=== PATIENT | male | born 1945 | race Two or more races ===

== ENCOUNTER 2019-05-23 15:55 | Inpatient (IN) | payer MEDICARE, OTHER ==
[~2019-05-23] VITALS: Ht 170.2 cm; Wt 71.8 kg
[2019-05-23 16:47] LABS: BASO % 1 % (0-3); EOS % 1 % (0-3); HEMATOCRIT 37.6 % (39.0-53.0); HEMOGLOBIN 12.5 g/dL (13.0-17.5); LYMPH # 2.2 x10^3/uL (1.0-4.8); LYMPH % 37 % (24-48); MEAN CORPUSCULAR HEMOGLOBIN 31 pg (25-35); MEAN CORPUSCULAR HGB CONC 33 g/dL (31-37); MEAN CORPUSCULAR VOLUME 92 fL (79-100); MONO # 0.4 x10^3/uL (0.0-1.1); MONO % 7 % (0-9); NEUT # 3.3 x10^3uL (1.8-7.7); NEUT % 56 % (31-73); PLATELET COUNT 238 x10^3/uL (140-400); RED BLOOD COUNT 4.09 x10^6/uL (4.30-5.70); RED CELL DISTRIBUTION WIDTH 15.2 % (11.5-14.5); WHITE BLOOD COUNT 5.9 x10^3/uL (4.0-11.0)
--- NOTE | 2019-05-23 16:51 | EKG ---
[address] [address] Test Date: 2019-05-23 Test Time: 16:36:38 Pat Name: RADHA CARBAJAL Department: Room: Gender: M Equipment Manager: : 1945 Requested By: SHAITSA ESPITIA Order Number: [id number] Reading MD: Feliz Arredondo MD Measurements Intervals Dewitt Rate: 64 P: 40 PA: 160 QRS: 6 QRSD: 118 T: 39 QT: 390 QTc: 406 Interpretive Statements SINUS RHYTHM RBBB NON-SPECIFIC ST/T CHANGES Electronically Signed On 05-30-2019 10:35:18 CDT by Feliz Arredondo MD
[2019-05-23 16:55] LABS: ALBUMIN 3.3 g/dL (3.4-5.0); ALBUMIN/GLOBULIN RATIO 0.8 (1.0-1.7); CALCIUM 9.1 mg/dL (8.5-10.1); CREATININE 1.1 mg/dL (0.7-1.3); GFR 65.3; MAGNESIUM 1.4 mg/dL (1.8-2.4); POTASSIUM 4.4 mmol/L (3.5-5.1); TOTAL BILIRUBIN 0.8 mg/dL (0.2-1.0); TOTAL PROTEIN 7.3 g/dL (6.4-8.2)
--- NOTE | 2019-05-23 17:06 | PHYS DOC ---
Past History Past Medical History: Anxiety, CAD, CVA, Dementia, Depression, Diabetes, High Cholesterol, Heart Disease, Hypertension, Prostatitis, Renal Disease, Schizophrenia, Stroke (SHAISTA ESPITIA MD) Past Surgical History: No Surgical History (SHAISTA ESPITIA MD) Alcohol Use: None Drug Use: None (SHAISTA ESPITIA MD) Adult General Chief Complaint Chief Complaint: PSYCH EVALUATION HPI HPI Patient is a 74-year-old male referred in 2 to more aggressive behavior. Has been masturbating in public and touching other members at [facility] patient has a history of chronic kidney disease he is on Bria Osorio has a history of diabetes no physical complaints noted. No trauma (SHAISTA ESPITIA MD) Review of Systems Review of Systems hanson by dementia pt denies complaints. (SHAISTA ESPITIA MD) Allergies Allergies Allergies Coded Allergies Type Severity Reaction Last Updated Verified No Known Drug Allergies 05/23/19 No (SHAISTA ESPITIA MD) Physical Exam Physical Exam Constitutional: Well developed, well nourished, no acute distress, non-toxic appearance. [] HENT: Normocephalic, atraumatic, bilateral external ears normal, oropharynx moist, no oral exudates, nose normal. [] Eyes: PERRLA, EOMI, conjunctiva normal, no discharge. [] Neck: Normal range of motion, no tenderness, supple, no stridor. [] Cardiovascular:Heart rate regular rhythm, no murmur [] Lungs & Thorax: Bilateral breath sounds clear to auscultation [] Abdomen: Bowel sounds normal, soft, no tenderness, no masses, no pulsatile masses. [] Skin: Warm, dry, no erythema, no rash. [] Back: No tenderness, no CVA tenderness. [] Neurologic: Alert and responsive, normal motor function, normal sensory functi on, no focal deficits noted. [] Psychologic: calm and cooperative (SHAISTA ESPITIA MD) Current Patient Data Vital Signs Vital Signs Date Time Temp Pulse Resp B/P (MAP) Pulse Ox O2 Delivery O2 Flow Rate FiO2 05/23/19 15:55 98.1 80 16 99 Room Air Lab Results Laboratory Tests Test 05/23/19 16:20 White Blood Count 5.9 x10^3/uL (4.0-11.0) Red Blood Count 4.09 x10^6/uL (4.30-5.70) L Hemoglobin 12.5 g/dL (13.0-17.5) L Hematocrit 37.6 % (39.0-53.0) L Mean Corpuscular Volume 92 fL (79-100) Mean Corpuscular Hemoglobin 31 pg (25-35) Mean Corpuscular Hemoglobin Concent 33 g/dL (31-37) Red Cell Distribution Width 15.2 % (11.5-14.5) H Platelet Count 238 x10^3/uL (140-400) Neutrophils (%) (Auto) 56 % (31-73) Lymphocytes (%) (Auto) 37 % (24-48) Monocytes (%) (Auto) 7 % (0-9) Eosinophils (%) (Auto) 1 % (0-3) Basophils (%) (Auto) 1 % (0-3) Neutrophils # (Auto) 3.3 x10^3uL (1.8-7.7) Lymphocytes # (Auto) 2.2 x10^3/uL (1.0-4.8) Monocytes # (Auto) 0.4 x10^3/uL (0.0-1.1) Eosinophils # (Auto) 0.0 x10^3/uL (0.0-0.7) Basophils # (Auto) 0.0 x10^3/uL (0.0-0.2) Sodium Level 138 mmol/L (136-145) Potassium Level 4.4 mmol/L (3.5-5.1) Chloride Level 101 mmol/L (98-107) Carbon Dioxide Level 27 mmol/L (21-32) Anion Gap 10 (6-14) Blood Urea Nitrogen 22 mg/dL (8-26) Creatinine 1.1 mg/dL (0.7-1.3) Estimated GFR (Cockcroft-Gault) 65.3 BUN/Creatinine Ratio 20 (6-20) Glucose Level 106 mg/dL (70-99) H Calcium Level 9.1 mg/dL (8.5-10.1) Magnesium Level 1.4 mg/dL (1.8-2.4) L Total Bilirubin 0.8 mg/dL (0.2-1.0) Aspartate Amino Transferase (AST) 11 U/L (15-37) L Alanine Aminotransferase (ALT) 15 U/L (16-63) L Alkaline Phosphatase 73 U/L (46-116) Total Protein 7.3 g/dL (6.4-8.2) Albumin 3.3 g/dL (3.4-5.0) L Albumin/Globulin Ratio 0.8 (1.0-1.7) L (SHAISTA ESPITIA MD) EKG EKG []Normal sinus rhythm rate of 64 there is a bundle branch block pattern no STEMI QTC 406 and interpreted by me time of encounter (SHAISTA ESPITIA MD) Radiology/Procedures Radiology/Procedures [] (SHAISTA ESPITIA MD) Course & Med Decision Making Course & Med Decision Making Pertinent Labs and Imaging studies reviewed. (See chart for details) []mild hypomag repleted 74 yo multiple medical problems p/w medical clearance for geripsych no physical complaints overall doing well in er waiting for urine then will clear medically. (SHAISTA ESPITIA MD) Course & Med Decision Making Impression: 1. Mental Status Change 2. Hx. of appropriate sexual behavior 3. Anemia hemoglobin 12.5 4. Hypo-magnesium 1.4 5. History of dementia Pt. admitted to Dr. Gray [facility] unit and consult to Dr. Sanchez for medical issues ( Note pt. admitted to Dr. Martinez vocational adviser for Dr. Gray / (YOLANDA CAVAZOS MD) Dragon Disclaimer Dragon Disclaimer This electronic medical record was generated, in whole or in part, using a voice recognition dictation system. (SHAISTA ESPITIA MD) Departure Departure: Impression: Primary Impression: Dementia Disposition: 01 HOME/RESIDENCE PRIOR TO ADM Condition: STABLE Referrals: UNKNOWN (PCP) Dragon Disclaimer This chart was dictated in whole or in part using Voice Recognition software in a busy, high-work load, and often noisy Emergency Department environment. It may contain unintended and wholly unrecognized errors or omissions. (YOLANDA CAVAZOS MD) SHAISTA ESPITIA MD May 23, 2019 17:06 YOLANDA CAVAZOS MD May 23, 2019 18:30
[2019-05-23] MEDS ORDERED: MAGNESIUM OXIDE 400 MG TABLET PO ONE (17:15)
[2019-05-23 17:56] LABS: BARBITURATES NEG (NEG); BENZODIAZEPINES NEG (NEG); CANNABINOIDS NEG (NEG); COCAINE NEG (NEG); METHADONE NEG (NEG); OPIATES NEG (NEG); PHENCYCLIDINE NEG (NEG)
[2019-05-23 17:57] LABS: AMPHETAMINE/METHAMPHETAMINE NEG (NEG)
[2019-05-23 18:03] LABS: BACTERIA,URINE FEW /HPF (0-FEW); BILIRUBIN,URINE NEG (NEG); CLARITY,URINE CLEAR; COLOR,URINE AMBER; GLUCOSE,URINE NEG (NEG); NITRITE,URINE NEG (NEG); RBC,URINE 0 /HPF (0-2); SQUAMOUS EPITHELIAL CELL,UR OCC /LPF; UROBILINOGEN,URINE 2 mg/dL (0.2 mg/dL)
[2019-05-23 18:04] LABS: HYALINE CASTS, URINE MOD /HPF
[2019-05-23] MEDS ORDERED: MEDR150D3 IM (19:09)
[2019-05-23] MEDS ORDERED: CYAN10002 IM (19:09)
[2019-05-23] MEDS ORDERED: LOSA100T14 PO (19:09)
[2019-05-23] MEDS ORDERED: DONE10TA7 PO (19:09)
[2019-05-23] MEDS ORDERED: TRAZ-120 PO (19:09)
[2019-05-23] MEDS ORDERED: ISOS30TA4 PO (19:09)
[2019-05-23] MEDS ORDERED: TAMS0.4C97 PO (19:09)
[2019-05-23] MEDS ORDERED: GLUC1KIT IM (19:09)
[2019-05-23] MEDS ORDERED: QUET50TA9 PO (19:09)
[2019-05-23] MEDS ORDERED: DEXT38GE2 PO (19:09)
[2019-05-23] MEDS ORDERED: MEDR150D3 SUBCUT (19:09)
[2019-05-23] MEDS ORDERED: INSU100I13 SQ (19:09)
[2019-05-23] MEDS ORDERED: ESTR1.25 PO (19:09)
[2019-05-23] MEDS ORDERED: METF10007 PO (19:09)
[2019-05-23] MEDS ORDERED: PARO20TA3 PO (19:09)
[2019-05-23] MEDS ORDERED: APIX5TAB5 PO (19:09)
[2019-05-23] MEDS ORDERED: LATA2.5D3 OU (19:09)
[2019-05-24] MEDS ORDERED: MAGNESIUM HYDROXIDE 2,400 MG/30 ML ORAL.SUSP. PO PRN (00:45)
[2019-05-24] MEDS ORDERED: MAG HYDROX/AL HYDROX/SIMETH 30 ML ORAL.SUSP PO PRN (00:45)
[2019-05-24] MEDS ORDERED: METHYL SALICYLATE/MENTHOL TOPICAL OINTMENT 57GM TUBE. TP PRN (00:45)
[2019-05-24] MEDS ORDERED: ACETAMINOPHEN 325 MG TABLET PO PRN (00:45)
[2019-05-24 01:55] VITALS: BP 161/78
[2019-05-24] MEDS ORDERED: MEDROXYPROGESTERONE ACETATE SUBCUT SCH (02:45)
[2019-05-24] MEDS ORDERED: GLUCAGON,HUMAN RECOMBINANT 1 MG KIT. IM PRN (02:45)
[2019-05-24] MEDS ORDERED: DEXTROSE ORAL GEL 15 GM TUBE. PO PRN (02:45)
[2019-05-24] MEDS ORDERED: ANTI-COAG MONITOR BY PHARMACY. MC PRN (03:00)
[2019-05-24 05:51] VITALS: BP 167/97
[2019-05-24 06:50] LABS: BASO % 1 % (0-3); EOS # 0.1 x10^3/uL (0.0-0.7); EOS % 2 % (0-3); HEMATOCRIT 35.4 % (39.0-53.0); HEMOGLOBIN 12.1 g/dL (13.0-17.5); LYMPH # 1.8 x10^3/uL (1.0-4.8); LYMPH % 38 % (24-48); MEAN CORPUSCULAR HEMOGLOBIN 31 pg (25-35); MEAN CORPUSCULAR HGB CONC 34 g/dL (31-37); MEAN CORPUSCULAR VOLUME 90 fL (79-100); MONO # 0.4 x10^3/uL (0.0-1.1); MONO % 8 % (0-9); NEUT # 2.3 x10^3uL (1.8-7.7); NEUT % 51 % (31-73); PLATELET COUNT 213 x10^3/uL (140-400); RED BLOOD COUNT 3.93 x10^6/uL (4.30-5.70); RED CELL DISTRIBUTION WIDTH 14.5 % (11.5-14.5); WHITE BLOOD COUNT 4.6 x10^3/uL (4.0-11.0)
[2019-05-24 07:10] LABS: ALBUMIN/GLOBULIN RATIO 0.8 (1.0-1.7); CALCIUM 8.6 mg/dL (8.5-10.1); CREATININE 0.8 mg/dL (0.7-1.3); GFR 94.2; MAGNESIUM 1.5 mg/dL (1.8-2.4); POTASSIUM 4.1 mmol/L (3.5-5.1); TOTAL BILIRUBIN 0.9 mg/dL (0.2-1.0); TOTAL PROTEIN 6.7 g/dL (6.4-8.2)
[2019-05-24] MEDS: DONEPEZIL HCL 10 MG TABLET PO SCH (08:19)
[2019-05-24] MEDS: metFORMIN 500 MG TABLET PO SCH ×2 (08:19→17:22)
[2019-05-24] MEDS: APIXABAN 2.5 MG TABLET PO SCH ×2 (08:20→21:40)
[2019-05-24] MEDS: PARoxetine 20 MG TABLET PO SCH (08:20)
[2019-05-24] MEDS: ISOSORBIDE MONONITRATE ER 30 MG TAB.ER.24H PO SCH (08:20)
[2019-05-24] MEDS: TAMSULOSIN 0.4 MG CAP.ER.24H. PO SCH (08:20)
[2019-05-24] MEDS ORDERED: MEDROXYPROGESTERONE ACETATE IM SCH ×2 (09:00)
[2019-05-24] MEDS ORDERED: LOSARTAN 25 MG TABLET. PO SCH (09:00)
[2019-05-24] MEDS ORDERED: ESTROGENS CONJUGATED PO SCH ×2 (09:00)
[2019-05-24 13:48] LABS: THYROID STIM HORMONE (TSH) 2.084 uIU/mL (0.358-3.740)
[2019-05-24 16:05] VITALS: BP 175/81
[2019-05-24 17:07] LABS: THYROXINE 8.3 ug/dL (4.5-12.0)
[2019-05-24] MEDS: traZODone 50 MG TABLET. PO SCH (17:22)
[2019-05-24] MEDS: QUEtiapine 50 MG TABLET. PO SCH (21:40)
[2019-05-24] MEDS: INSULIN GLARGINE SYRINGE. SQ SCH (21:42)
[2019-05-24] MEDS: LATANOPROST 0.005% OPHTH SOLUTION 2.5ML BOTTLE. OU SCH (21:42)
[2019-05-25 02:07] LABS: HEMOGLOBIN A1C 5.8 % (4.8-5.6)
--- NOTE | 2019-05-25 05:32 | CONS ---
DATE OF CONSULTATION: REASON FOR CONSULTATION: Medical management. HISTORY OF PRESENT ILLNESS: The patient is a 74-year-old male patient, a resident at [facility] who was admitted on account of refusing medications and care, resistance at times, sexually inappropriate, masturbating in public areas with his hand down on another resident's pant, targeting another male resident, all this in a background of dementia with behavioral disorder as well as schizophrenia. PAST MEDICAL HISTORY: Significant for type 2 diabetes mellitus, chronic kidney disease, hypertension, benign prostatic hypertrophy, dyslipidemia, cerebrovascular accident, coronary artery disease, and left-sided hemiparesis. He also has severe sensorineural deafness. PAST SURGICAL HISTORY: Significant for hernia repair. PAST PSYCHIATRIC HISTORY: Significant for dementia, schizophrenia, and anxiety. ALLERGIES: He has no known drug allergies. MEDICATIONS: He is currently on following medications: He is on Aricept 10 mg at bedtime, tamsulosin 0.4 mg daily, apixaban 2.5 mg twice a day, isosorbide mononitrate 30 mg once a day, losartan potassium 25 mg once a day, paroxetine 25 mg once a day, trazodone 50 mg once a day. He is on Seroquel extended release 50 mg at bedtime. He is on latanoprost 1 drop to both eyes at bedtime. He is on conjugated estrogen 1.25 mg tablet 1 mg p.o. daily, metformin 1000 mg twice a day, Lantus insulin 14 units at bedtime and glucagon 1 mg intramuscular as needed for hypoglycemia. He is on medroxyprogesterone acetate 150 mg in 1 mL intramuscular once a month, cyanocobalamin 1000 mcg/mL once a month. FAMILY HISTORY: Noncontributory. SOCIAL HISTORY: He is a resident at [facility]. He does not smoke, drink alcohol or use any recreational drugs. He uses a walker. PHYSICAL EXAMINATION: GENERAL: When I examined him this afternoon, he was sitting comfortably in his chair, in no apparent respiratory distress. He was slightly pale, but no jaundice, cyanosis or thyromegaly. No jugular venous distention. No limb edema. VITAL SIGNS: His heart rate was 106, blood pressure was 175/81, temperature was 98, respiratory rate was 18 and oxygen saturation was 99%. HEAD, EYES, EARS, NOSE AND THROAT: Showed normocephalic, atraumatic. NECK: Supple. HEART: Showed normal first and second heart sounds, but no gallop, rub or murmur. CHEST: Clear to auscultation. No crepitation or rhonchi. ABDOMEN: Distended, soft, nontender. No guarding or rigidity. No organomegaly. All hernial orifices are intact. Bowel sounds normal. NEUROLOGIC: He is hard of hearing, but otherwise all his cranial nerves are intact. EXTREMITIES: He moves extremities without difficulty. He ambulates with a walker. LABORATORY DATA: Showed a white cell count of 4600, hemoglobin 12, hematocrit 35, MCV 90 and platelet count 213,000. His chemistry showed serum sodium of 137, potassium 4.1, chloride 103, bicarbonate 27, anion gap of 7, BUN 18, creatinine 0.8, estimated GFR was 94 mL per minute. His glucose was 90, calcium was 8.6, and magnesium was 1.5. Serum iron, TIBC, and iron saturation are all low. His total bilirubin, AST, ALT, alkaline phosphatase were normal. Total protein was 6.7, albumin 3. Serum triglycerides 91, total cholesterol 174, LDL cholesterol 120, VLDL was 18, HDL was 26, and the ratio was 4. His TSH was 2.084. Urinalysis was essentially unremarkable and toxic screen was negative. IMPRESSION: In summary, this is a 74-year-old male patient, a resident at [facility], who was admitted on account of refusing medication and care, sexually inappropriate, masturbating in public areas with his hands down another resident's pant, targeting another male resident, all this in a background of dementia with behavioral disturbances and schizophrenia. Medically, he is known to have type 2 diabetes, hypertension, hyperlipidemia, benign prostatic hypertrophy, chronic kidney disease, cerebrovascular accident, coronary artery disease, and left-sided hemiparesis. All in all, the patient seems to be medically stable, although his blood pressure seems to be fluctuating and labile. He is actually on losartan 25 mg, can be increased to 50. He is also on isosorbide mononitrate. I will follow him closely and if need be, we can adjust his medication to control his blood pressure. Thank you, Dr. rGay, for allowing me to participate in the care of this patient. MALINDA DONNELLY MD DR: EUGENIA/fatoumata JOB#: [id number] / [id number]
[2019-05-25 06:10] VITALS: BP 134/76
--- NOTE | 2019-05-25 06:54 | PSYEV ---
DATE OF SERVICE: REASON FOR ADMISSION: This 74-year-old single male was admitted to inpatient program at [facility] from [facility] where he was a resident for several years. The patient apparently started exhibiting inappropriate sexual behaviors, masturbating in public areas and also targeting another male resident, putting his hands down another resident's pant. HISTORY OF PRESENT ILLNESS: The patient had significant hearing loss. He had difficulty providing much information except he admitted to exhibiting some sexual behaviors and also stated that he is not going to repeat that behavior again. The patient is having multiple physical problems. He had history of two CVAs, also having chronic kidney disease and has the diagnosis of schizophrenia, anxiety in the past. The patient is appropriately dressed. The patient's gait is impaired, had left hemiparesis. The patient unable to give much information, but he was able to talk about his past that includes that he grew up in an orphanage from [id number]. The patient states he finished high school. The patient started having problems. The patient was in a foster care since he was 11 years old. The patient had some difficulty giving a full chronological history. The patient states after finishing high school, he went to college for 2 years and also, he stayed with a family for a period of time. 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 The patient apparently was for 51 years, and has 3 children. PAST PSYCHIATRIC HISTORY: The patient denies of having any psychiatric problems before. Never had any hospitalizations. PAST MEDICAL HISTORY: The patient has chronic heart disease. Apparently, he had two major CVAs, left him with left hemiparesis. The patient also has stage 3 chronic kidney disease. The patient also has signs of dementia, early signs. The patient also has hypertension, BPH, dyslipidemia, coronary artery disease. The patient apparently had a CVA in October in the past year and treated at [facility]. At that time, he had left facial drooping and dysarthria. He was also in the rehab program and was able to walk. The patient started showing gradual decline. Currently, he is on wheelchair. The patient also has a history of diabetes mellitus type 2. The patient also had degenerative joint disease. PSYCHOSOCIAL HISTORY: As stated above, the patient was placed in an orphanage and was able to finish high school, 2 years of college. He worked as an accountant supervisor for a period of time. The patient is currently disabled. The patient's longest job was for 4 years. The patient was for 51 years, , has 3 children. The patient denies of any alcohol or substance abuse. FAMILY HISTORY: Denies. MENTAL STATUS EXAMINATION: The patient appeared to be of his stated age, appropriately dressed, on wheelchair. The patient had significant hearing loss, but able to make eye contact. The patient was able to give information with regard to his past medical issues and treatments and admits that he exhibited some sexual behaviors at this facility before coming here. His speech was clear, monotone and no evidence of any speech impediment. His affect and mood were somewhat withdrawn, some blunting of affect. The patient denies of feeling depressed and also somewhat indifferent to his surroundings. The patient also had difficulty with the date and time and he knew he was in the hospital, but he did not know it was [place]. The patient admits his memory problems are getting worse. ASSETS: The patient apparently made a significant recovery from the CVAs in the past, but currently he is wheelchair bound. The patient apparently able to talk, able to interact with others. WEAKNESSES: The patient apparently is exhibiting inappropriate sexual behaviors including masturbating in public, but the patient is not comfortable talking about what happened, but he is aware of the incident and also his responsibility. ADMITTING DIAGNOSES: 1. Dementia, vascular type with behavior problems. 2. History of schizophrenia, currently not exhibiting any psychotic symptoms. 3. Impulse control disorder, unspecified. 4. Generalized anxiety disorder. AXIS II: None. AXIS III: Diabetes mellitus, coronary artery disease, status post cerebrovascular accident twice, left hemiparesis, hypertension and dyslipidemia. The patient's home medications included Depo-Provera 104 mg IM, Premarin 1 mg daily, Aricept 10 mg daily, Paxil 20 mg daily, trazodone 50 mg daily in the evening and Seroquel 50 mg at night. INITIAL TREATMENT PLAN: The patient will continue on the current treatment regimen and the patient also was on Aricept in the past 10 mg at bedtime. The patient encouraged to attend all the activities. The patient also will be involved in individual therapy, group therapy, activity therapy. The patient's lab reviewed. The patient's hemoglobin was 12.1. The patient's BUN was 23, glucose 106. The patient's LDL was 120, HDL 36, urine analysis was within normal range. The patient will continue on all his medications including B12 1000 mcg IM monthly, losartan 50 mg daily for hypertension and also the Depo-Provera injections IM monthly, insulin 14 units at night, Seroquel 50 mg at night, trazodone 50 mg daily. The patient is also on Eliquis 2.5 mg b.i.d., Flomax 0.4 mg daily, paroxetine 20 mg daily, Aricept 10 mg daily, metformin 1000 mg b.i.d. The patient is also on glucagon. LENGTH OF STAY: 7-10 days. DISCHARGE CRITERIA: The patient currently will be under evaluation. The patient's medications will be monitored. The patient will be considered for discharge if he maintains reasonable improvement for 3 consecutive days. RADHA SHAFER MD DR: JONAS/fatoumata JOB#: [id number] / [id number]
[2019-05-25] MEDS: metFORMIN 500 MG TABLET PO SCH ×2 (08:21→16:36)
[2019-05-25] MEDS: LOSARTAN 50 MG TABLET. PO SCH (08:22)
[2019-05-25] MEDS: TAMSULOSIN 0.4 MG CAP.ER.24H. PO SCH (08:22)
[2019-05-25] MEDS: DONEPEZIL HCL 10 MG TABLET PO SCH (08:22)
[2019-05-25] MEDS: APIXABAN 2.5 MG TABLET PO SCH ×2 (08:22→21:35)
[2019-05-25] MEDS: ESTROGENS, CONJUGATED 0.3 MG TABLET PO SCH (08:23)
[2019-05-25] MEDS: PARoxetine 20 MG TABLET PO SCH (08:23)
[2019-05-25] MEDS ORDERED: medroxyPROGESTERone IM 150 MG/ML VIAL. IM SCH (09:00)
[2019-05-25] MEDS: ISOSORBIDE MONONITRATE ER 30 MG TAB.ER.24H PO SCH (09:00)
[2019-05-25 16:11] VITALS: BP 169/158
[2019-05-25] MEDS: traZODone 50 MG TABLET. PO SCH (16:36)
[2019-05-25] MEDS: LATANOPROST 0.005% OPHTH SOLUTION 2.5ML BOTTLE. OU SCH (21:32)
[2019-05-25] MEDS: INSULIN GLARGINE SYRINGE. SQ SCH (21:34)
[2019-05-25] MEDS: QUEtiapine 50 MG TABLET. PO SCH (21:35)
[2019-05-26 05:50] VITALS: BP 138/76
[2019-05-26] MEDS: TAMSULOSIN 0.4 MG CAP.ER.24H. PO SCH (09:53)
[2019-05-26] MEDS: ISOSORBIDE MONONITRATE ER 30 MG TAB.ER.24H PO SCH (09:53)
[2019-05-26] MEDS: DONEPEZIL HCL 10 MG TABLET PO SCH ×2 (09:54→21:27)
[2019-05-26] MEDS: PARoxetine 20 MG TABLET PO SCH (09:54)
[2019-05-26] MEDS: ESTROGENS, CONJUGATED 0.3 MG TABLET PO SCH (09:54)
[2019-05-26] MEDS: metFORMIN 500 MG TABLET PO SCH ×2 (09:54→17:23)
[2019-05-26] MEDS: APIXABAN 2.5 MG TABLET PO SCH ×2 (09:54→21:21)
[2019-05-26] MEDS: LOSARTAN 50 MG TABLET. PO SCH (09:55)
--- NOTE | 2019-05-26 13:11 | PN ---
DATE: 05/25/2019 SUBJECTIVE: The patient was seen today, met with the staff, chart reviewed. Staff reports no major behavior problems. The patient has difficulty with hearing. The patient also withdrawn, admits to feeling lonely, depressed. The patient also feeling almost guilt because of his behaviors prior to coming here. The patient is participating in all the activities, interacting with the staff and other residents. Did not present with any major mood swings. OBSERVATION: VITAL SIGNS: Temperature 97.6, blood pressure 134/76, pulse 58, respiration 18, O2 sat 98%. GENERAL: Slept about 6 hours last night. The patient's appetite normal. MEDICATIONS: The patient's current medications include: B12 1000 mcg IM monthly. The patient also on Premarin 0.9 mg daily, losartan 50 mg daily, is also on Depo-Provera IM 104 mg monthly. The patient is also on insulin Lantus, also Seroquel 50 mg at night, trazodone 50 mg at bedtime, Paxil 20 mg daily, Aricept 10 mg daily. The patient is also on metformin, glucagon and also Flomax, Imdur and Eliquis. The patient is not having any side effects. LABORATORY DATA: The patient's lab reviewed. The patient's blood sugar fluctuates. The patient's hemoglobin 5.8, BUN 23, LDL 120, HDL 36. ASSESSMENT: 1. Dementia, vascular type with behavior problems. 2. History of schizophrenia, currently not exhibiting any psychotic symptoms. 3. Impulse control disorder, unspecified. 4. Generalized anxiety disorder. PLAN: To continue with the current treatment. The patient is encouraged to attend all the activities. RADHA SHAFER MD DR: JONAS/fatoumata JOB#: [id number] / [id number]
[2019-05-26 16:54] VITALS: BP 110/60
[2019-05-26] MEDS: traZODone 50 MG TABLET. PO SCH (17:23)
[2019-05-26] MEDS: LATANOPROST 0.005% OPHTH SOLUTION 2.5ML BOTTLE. OU SCH (21:21)
[2019-05-26] MEDS: QUEtiapine 50 MG TABLET. PO SCH (21:21)
[2019-05-26] MEDS: INSULIN GLARGINE SYRINGE. SQ SCH (21:28)
--- NOTE | 2019-05-27 01:46 | PN ---
DATE: 05/26/2019 SUBJECTIVE: The patient was seen today, met with the staff, chart reviewed. Staff reports somewhat inappropriate towards another female resident. The patient also has been isolating himself, but admits to feeling depressed. The patient is also aware that he is here because of his sexual behaviors which are inappropriate where he was staying. The patient is on wheelchair and the patient also showing decreased psychomotor activity and also lack of motivation. OBSERVATION: VITAL SIGNS: Temperature 98.1, blood pressure 138/76, pulse 68, respirations 20, O2 sat 99%. Slept about 7 hours last night. The patient's appetite is fair. MEDICATIONS: The patient's current medications include B12 1000 mcg IM monthly. The patient is also on Premarin 0.9 mg daily and also Depo-Provera IM 104 mg monthly. The patient is also diabetic, currently on Lantus. The patient is also getting Seroquel 50 mg at night, trazodone 50 mg at bedtime, Paxil 20 mg daily, and Aricept 10 mg daily. The patient is not having any side effects. LABORATORY DATA: The patient's lab reviewed. ASSESSMENT: 1. Dementia, vascular type with behavior problems. 2. History of schizophrenia, currently not exhibiting any psychotic symptoms. 3. Impulse control disorder, unspecified. 4. Generalized anxiety disorder. Continue with the treatment. RADHA SHAFER MD DR: JONAS/fatoumata JOB#: [id number] / [id number]
[2019-05-27 05:03] VITALS: BP 158/82
[2019-05-27] MEDS: TAMSULOSIN 0.4 MG CAP.ER.24H. PO SCH (08:24)
[2019-05-27] MEDS: LOSARTAN 50 MG TABLET. PO SCH (08:24)
[2019-05-27] MEDS: metFORMIN 500 MG TABLET PO SCH ×2 (08:24→16:21)
[2019-05-27] MEDS: ISOSORBIDE MONONITRATE ER 30 MG TAB.ER.24H PO SCH (08:24)
[2019-05-27] MEDS: APIXABAN 2.5 MG TABLET PO SCH ×2 (08:24→20:20)
[2019-05-27] MEDS: ESTROGENS, CONJUGATED 0.3 MG TABLET PO SCH (08:25)
[2019-05-27] MEDS: PARoxetine 20 MG TABLET PO SCH (08:25)
[2019-05-27 15:30] VITALS: BP 125/68
[2019-05-27] MEDS: CHOLECALCIFEROL (VITAMIN D3) 50,000 UNIT CAPSULE PO SCH (16:20)
[2019-05-27] MEDS: traZODone 50 MG TABLET. PO SCH (16:20)
[2019-05-27] MEDS: QUEtiapine 50 MG TABLET. PO SCH (20:20)
[2019-05-27] MEDS: LATANOPROST 0.005% OPHTH SOLUTION 2.5ML BOTTLE. OU SCH (20:20)
[2019-05-27] MEDS: INSULIN GLARGINE SYRINGE. SQ SCH (20:25)
[2019-05-28 07:08] VITALS: BP 155/87
[2019-05-28] MEDS: LOSARTAN 50 MG TABLET. PO SCH (08:44)
[2019-05-28] MEDS: DONEPEZIL HCL 10 MG TABLET PO SCH (08:44)
[2019-05-28] MEDS: metFORMIN 500 MG TABLET PO SCH ×2 (08:44→17:29)
[2019-05-28] MEDS: TAMSULOSIN 0.4 MG CAP.ER.24H. PO SCH (08:44)
[2019-05-28] MEDS: APIXABAN 2.5 MG TABLET PO SCH ×2 (08:44→20:19)
[2019-05-28] MEDS: ISOSORBIDE MONONITRATE ER 30 MG TAB.ER.24H PO SCH (08:44)
[2019-05-28] MEDS: PARoxetine 20 MG TABLET PO SCH (08:45)
[2019-05-28] MEDS: ESTROGENS, CONJUGATED 0.3 MG TABLET PO SCH (08:45)
[2019-05-28 15:38] VITALS: BP 168/93
[2019-05-28] MEDS: traZODone 50 MG TABLET. PO SCH (17:29)
[2019-05-28] MEDS: QUEtiapine 50 MG TABLET. PO SCH (20:18)
[2019-05-28] MEDS: LATANOPROST 0.005% OPHTH SOLUTION 2.5ML BOTTLE. OU SCH (20:19)
[2019-05-28] MEDS: INSULIN GLARGINE SYRINGE. SQ SCH (20:22)
--- NOTE | 2019-05-28 23:40 | PN ---
DATE: 05/28/2019 SUBJECTIVE: The patient was seen today, met with the staff, chart reviewed. The patient still withdrawn, isolative, reports no major problems. There was some concern about the patient's behavior being too close to another female. Staff reports the patient with hearing loss that could be one of the reasons he was too close to the other resident. The patient has a history of sexually inappropriate behaviors prior to coming here. OBSERVATION: VITAL SIGNS: Temperature 97.4, blood pressure 155/87, pulse 63, respirations 16, O2 sat 99%. GENERAL: Slept about 8 hours last night. The patient's appetite normal. MEDICATIONS: The patient's current medications include Seroquel 50 mg at night, trazodone 50 mg at bedtime, Paxil 20 mg daily and Aricept 10 mg daily. LABORATORY DATA: The patient's lab reviewed. ASSESSMENT: 1. Dementia, vascular type with behavior problems. 2. History of schizophrenia, currently not exhibiting any psychotic symptoms. 3. Impulse control disorder, unspecified. 4. Generalized anxiety disorder. PLAN: Continue with the treatment. RADHA SHAFER MD DR: JONAS/fatoumata JOB#: [id number] / [id number]
[2019-05-29 06:06] VITALS: BP 130/63
[2019-05-29] MEDS: LOSARTAN 50 MG TABLET. PO SCH (08:25)
[2019-05-29] MEDS: DONEPEZIL HCL 10 MG TABLET PO SCH (08:25)
[2019-05-29] MEDS: APIXABAN 2.5 MG TABLET PO SCH ×2 (08:25→21:09)
[2019-05-29] MEDS: TAMSULOSIN 0.4 MG CAP.ER.24H. PO SCH (08:25)
[2019-05-29] MEDS: metFORMIN 500 MG TABLET PO SCH ×2 (08:25→16:18)
[2019-05-29] MEDS: ISOSORBIDE MONONITRATE ER 30 MG TAB.ER.24H PO SCH (08:26)
[2019-05-29] MEDS: ESTROGENS, CONJUGATED 0.3 MG TABLET PO SCH (08:26)
[2019-05-29] MEDS: PARoxetine 20 MG TABLET PO SCH (08:26)
[2019-05-29 16:14] VITALS: BP 130/70
[2019-05-29] MEDS: traZODone 50 MG TABLET. PO SCH (16:18)
[2019-05-29] MEDS: LATANOPROST 0.005% OPHTH SOLUTION 2.5ML BOTTLE. OU SCH (21:09)
[2019-05-29] MEDS: QUEtiapine 50 MG TABLET. PO SCH (21:09)
[2019-05-29] MEDS: INSULIN GLARGINE SYRINGE. SQ SCH (21:23)
--- NOTE | 2019-05-29 21:45 | PDOC ---
Exam Note: Cy Note: Please also refer to the separate dictated note~for this date of service dictated separately.~Patient seen individually. Discussed the patient with Nursing staff reviewed the chart.~Reviewed interim history and current functioning. Reviewed vital signs,~Labs/ Radiology~and current medications noted below. Continue current treatment with the changes noted in the dictated addendum note Assessment: Vital Signs/I&O: Vital Signs Date Time Temp Pulse Resp B/P (MAP) Pulse Ox O2 Delivery O2 Flow Rate FiO2 05/29/19 16:14 96.9 68 16 130/70 (90) 99 05/29/19 06:06 Room Air I & O 05/28/19 05/28/19 05/29/19 14:59 22:59 06:59 Intake Total 960 ml 580 ml Balance 960 ml 580 ml Labs: Laboratory Tests Test 05/29/19 07:12 05/29/19 19:02 Glucose (Fingerstick) 124 mg/dL (70-99) H 165 mg/dL (70-99) H Current Medications: I have reviewed the current psychotropics carefully including drug interactions. Risk benefit ratio favors no change other than as noted in my dictated progress note. Diagnosis: Problems: (1) Dementia (2) Hypomagnesemia LEILA JAIMES MD May 29, 2019 21:45
[2019-05-30 06:25] VITALS: BP 158/86
[2019-05-30] MEDS: ESTROGENS, CONJUGATED 0.3 MG TABLET PO SCH (08:19)
[2019-05-30] MEDS: TAMSULOSIN 0.4 MG CAP.ER.24H. PO SCH (08:19)
[2019-05-30] MEDS: ISOSORBIDE MONONITRATE ER 30 MG TAB.ER.24H PO SCH (08:19)
[2019-05-30] MEDS: metFORMIN 500 MG TABLET PO SCH ×2 (08:19→17:29)
[2019-05-30] MEDS: PARoxetine 20 MG TABLET PO SCH (08:20)
[2019-05-30] MEDS: LOSARTAN 50 MG TABLET. PO SCH ×2 (08:20→17:56)
[2019-05-30] MEDS: DONEPEZIL HCL 10 MG TABLET PO SCH (08:20)
[2019-05-30] MEDS: APIXABAN 2.5 MG TABLET PO SCH ×2 (08:20→20:44)
[2019-05-30 15:44] VITALS: BP 174/71
[2019-05-30] MEDS: traZODone 50 MG TABLET. PO SCH (17:28)
--- NOTE | 2019-05-30 18:50 | PN ---
DATE: 05/29/2019 PSYCHIATRIC PROGRESS NOTE This is a late entry, date of service 05/29/2019 covers elements not covered in my initial note. SUBJECTIVE: I met with the patient evening of 05/29/2019 in his room. Discussed with nursing staff, reviewed the chart, reviewed information with Dr. Martinez who covered for me over the past 1 week. The patient slept 7-3/4 hours previous night. He has been calm, compliant with medications, reasonably oriented. No sexually inappropriate behaviors or aggression noted per nursing staff. REVIEW OF SYSTEMS: Ambulation impaired, in wheelchair. No CV, , pulmonary, eye system symptoms on review. MENTAL STATUS EXAM: Reasonably oriented. Speech has some latency, coherent. Abstraction fair, computation impaired, language function intact, attention span short. Mood and affect somewhat withdrawn. LABORATORY DATA: Reviewed. IMPRESSION: Probable schizoaffective disorder, bipolar type; impulse control disorder, status post CVA, anxiety disorder, unspecified; mild cognitive impairment, symptoms of OCD. Rest unchanged. PLAN: From a psychiatric standpoint, the patient is on Depo-Provera IM monthly, changing on 07/23/2019 to every 3 months, Premarin 1 mg daily, Aricept 10 mg daily, Paxil 20 mg a day, trazodone 50 mg at 1700, Seroquel 50 mg at bedtime. We will observe another day or two, but given his marked sexually inappropriate behaviors, masturbating in public areas, putting his hands down other residents pants, targeting another male resident, all of which was happening at [facility] prior to admission prompting this hospitalization. We may consider adding Depakote as a mood stabilizer and for helping his impulse control disorder. I will reassess him in the next day or so and then decide. I had a lengthy review of his past history and records. LEILA JAIMES MD DR: YANY/fatoumata JOB#: [id number] / [id number]
[2019-05-30] MEDS: LATANOPROST 0.005% OPHTH SOLUTION 2.5ML BOTTLE. OU SCH (20:44)
[2019-05-30] MEDS: DIVALPROEX ER 500 MG TAB.ER.24H PO SCH (20:44)
[2019-05-30] MEDS: QUEtiapine 50 MG TABLET. PO SCH (20:44)
[2019-05-30] MEDS: INSULIN GLARGINE SYRINGE. SQ SCH (20:46)
--- NOTE | 2019-05-30 21:37 | PDOC ---
Exam Note: Cy Note: Please also refer to the separate dictated note~for this date of service dictated separately.~Patient seen individually. Discussed the patient with Nursing staff reviewed the chart.~Reviewed interim history and current functioning. Reviewed vital signs,~Labs/ Radiology~and current medications noted below. Continue current treatment with the changes noted in the dictated addendum note Assessment: Vital Signs/I&O: Vital Signs Date Time Temp Pulse Resp B/P (MAP) Pulse Ox O2 Delivery O2 Flow Rate FiO2 05/30/19 17:56 65 174/71 05/30/19 15:44 98.2 18 100 05/29/19 06:06 Room Air I & O 05/29/19 05/29/19 05/30/19 15:00 23:00 07:00 Intake Total 840 ml 240 ml 240 ml Balance 840 ml 240 ml 240 ml Labs: Laboratory Tests Test 05/30/19 19:03 Glucose (Fingerstick) 134 mg/dL (70-99) H Current Medications: Meds: Current Medications Medications (Trade) Dose Ordered Sig/Agnelique Route PRN Reason Start Time Stop Time Status Last Admin Dose Admin Losartan Potassium (Cozaar) 100 mg DAILY PO 05/30/19 17:15 05/30/19 17:56 Divalproex Sodium (Depakote Er) 500 mg QHS PO 05/30/19 21:00 05/30/19 20:44 I have reviewed the current psychotropics carefully including drug interactions. Risk benefit ratio favors no change other than as noted in my dictated progress note. Diagnosis: Problems: (1) Anxiety disorder (2) Impulse disorder (3) History of schizophrenia (4) Vascular dementia with behavior disturbance LEILA JAIMES MD May 30, 2019 21:37
[2019-05-31 05:36] VITALS: BP 148/78
[2019-05-31] MEDS: LOSARTAN 50 MG TABLET. PO SCH (08:14)
[2019-05-31] MEDS: ESTROGENS, CONJUGATED 0.3 MG TABLET PO SCH (08:14)
[2019-05-31] MEDS: ISOSORBIDE MONONITRATE ER 30 MG TAB.ER.24H PO SCH (08:15)
[2019-05-31] MEDS: APIXABAN 2.5 MG TABLET PO SCH ×2 (08:15→21:02)
[2019-05-31] MEDS: metFORMIN 500 MG TABLET PO SCH ×2 (08:15→17:53)
[2019-05-31] MEDS: DONEPEZIL HCL 10 MG TABLET PO SCH (08:15)
[2019-05-31] MEDS: TAMSULOSIN 0.4 MG CAP.ER.24H. PO SCH (08:15)
[2019-05-31] MEDS: PARoxetine 10 MG TABLET PO SCH (08:17)
[2019-05-31 16:51] VITALS: BP 151/75
[2019-05-31] MEDS: traZODone 50 MG TABLET. PO SCH (17:53)
[2019-05-31] MEDS: QUEtiapine 50 MG TABLET. PO SCH (21:02)
[2019-05-31] MEDS: DIVALPROEX ER 500 MG TAB.ER.24H PO SCH (21:03)
[2019-05-31] MEDS: INSULIN GLARGINE SYRINGE. SQ SCH (21:04)
[2019-05-31] MEDS: LATANOPROST 0.005% OPHTH SOLUTION 2.5ML BOTTLE. OU SCH (21:14)
--- NOTE | 2019-05-31 21:35 | PDOC ---
Exam Note: Cy Note: Please also refer to the separate dictated note~for this date of service dictated separately.~Patient seen individually. Discussed the patient with Nursing staff reviewed the chart.~Reviewed interim history and current functioning. Reviewed vital signs,~Labs/ Radiology~and current medications noted below. Continue current treatment with the changes noted in the dictated addendum note Assessment: Vital Signs/I&O: Vital Signs Date Time Temp Pulse Resp B/P (MAP) Pulse Ox O2 Delivery O2 Flow Rate FiO2 05/31/19 16:51 98.6 74 18 151/75 (100) 99 05/29/19 06:06 Room Air I & O 05/30/19 05/30/19 05/31/19 15:00 23:00 07:00 Intake Total 600 ml 360 ml Balance 600 ml 360 ml Labs: Laboratory Tests Test 05/31/19 07:42 05/31/19 19:34 Glucose (Fingerstick) 74 mg/dL (70-99) 221 mg/dL (70-99) H Current Medications: Meds: Current Medications Medications (Trade) Dose Ordered Sig/Angelique Route PRN Reason Start Time Stop Time Status Last Admin Dose Admin Paroxetine HCl (Paxil) 10 mg DAILY PO 05/31/19 09:00 05/31/19 08:17 Fluvoxamine Maleate (Luvox) 25 mg DAILY PO 05/31/19 09:00 06/02/19 23:50 05/31/19 08:17 I have reviewed the current psychotropics carefully including drug interactions. Risk benefit ratio favors no change other than as noted in my dictated progress note. Diagnosis: Problems: (1) History of schizophrenia (2) Vascular dementia with behavior disturbance (3) Anxiety disorder (4) Impulse disorder LEILA JAIMES MD May 31, 2019 21:35
--- NOTE | 2019-06-01 01:06 | PN ---
DATE: 05/30/2019 PSYCHIATRIC PROGRESS NOTE This late entry 05/30/2019 covers elements not covered in my initial note. SUBJECTIVE: I met with the patient in the evening of 05/30/2019. Per NELL Vazquez, the patient slept 8-1/4 hours previous night. Generally, he has had a better day though after dinner, he was being somewhat sexually inappropriate with another female demented patient, somewhat obsessive. REVIEW OF SYSTEMS: Ambulation impaired, in wheelchair. No CV, , pulmonary, eye system symptoms on review. MENTAL STATUS EXAM: Reasonably oriented. Speech coherent, somewhat rapid at times. Abstraction fair, computation impaired, language function intact, attention span short. Short term memory is impaired. Mood and affect remain somewhat anxious, labile. LABORATORY DATA: Reviewed. IMPRESSION: Schizoaffective disorder, bipolar type; mild cognitive impairment; obsessive-compulsive disorder; anxiety disorder, unspecified; impulse control disorder. PLAN: Given some of the patient's obsessive behaviors and compulsive behaviors surrounding sexual acts, we will go ahead and change the Paxil 20 mg a day to Luvox 25 mg daily for 2 days, then 50 mg a day, start Depakote ER 500 mg p.o. at bedtime. Check CBC, CMP, valproic acid level in 3 days. Continue Depo-Provera IM, Premarin both for his sexually aggressive behaviors and Seroquel 50 mg at bedtime, trazodone 50 mg at 1700. MAN Marlene JAIMES MD DR: YANY/fatoumata JOB#: [id number] / [id number]
[2019-06-01 06:13] VITALS: BP 147/79
[2019-06-01] MEDS: APIXABAN 2.5 MG TABLET PO SCH ×2 (08:24→21:10)
[2019-06-01] MEDS: LOSARTAN 50 MG TABLET. PO SCH (08:24)
[2019-06-01] MEDS: ESTROGENS, CONJUGATED 0.3 MG TABLET PO SCH (08:25)
[2019-06-01] MEDS: metFORMIN 500 MG TABLET PO SCH ×2 (08:25→17:10)
[2019-06-01] MEDS: DONEPEZIL HCL 10 MG TABLET PO SCH (08:25)
[2019-06-01] MEDS: TAMSULOSIN 0.4 MG CAP.ER.24H. PO SCH (08:25)
[2019-06-01] MEDS: ISOSORBIDE MONONITRATE ER 30 MG TAB.ER.24H PO SCH (08:25)
[2019-06-01] MEDS: PARoxetine 10 MG TABLET PO SCH (08:25)
[2019-06-01 16:15] VITALS: BP 114/72
[2019-06-01] MEDS: traZODone 50 MG TABLET. PO SCH (17:10)
[2019-06-01] MEDS: INSULIN GLARGINE SYRINGE. SQ SCH (21:00)
--- NOTE | 2019-06-01 21:04 | PDOC ---
Exam Note: Cy Note: Please also refer to the separate dictated note~for this date of service dictated separately.~Patient seen individually. Discussed the patient with Nursing staff reviewed the chart.~Reviewed interim history and current functioning. Reviewed vital signs,~Labs/ Radiology~and current medications noted below. Continue current treatment with the changes noted in the dictated addendum note Assessment: Vital Signs/I&O: Vital Signs Date Time Temp Pulse Resp B/P (MAP) Pulse Ox O2 Delivery O2 Flow Rate FiO2 06/01/19 16:15 98.5 78 16 114/72 (86) 98 Room Air I & O 05/31/19 05/31/19 06/01/19 15:00 23:00 07:00 Intake Total 600 ml 120 ml 100 ml Balance 600 ml 120 ml 100 ml Labs: Laboratory Tests Test 06/01/19 07:54 06/01/19 19:03 Glucose (Fingerstick) 76 mg/dL (70-99) 250 mg/dL (70-99) H Current Medications: I have reviewed the current psychotropics carefully including drug interactions. Risk benefit ratio favors no change other than as noted in my dictated progress note. Diagnosis: Problems: (1) History of schizophrenia (2) Vascular dementia with behavior disturbance (3) Anxiety disorder (4) Impulse disorder LEILA JAIMES MD Jun 01, 2019 21:04
[2019-06-01] MEDS: DIVALPROEX ER 500 MG TAB.ER.24H PO SCH (21:10)
[2019-06-01] MEDS: QUEtiapine 50 MG TABLET. PO SCH (21:10)
[2019-06-01] MEDS: LATANOPROST 0.005% OPHTH SOLUTION 2.5ML BOTTLE. OU SCH (21:11)
[2019-06-02 06:20] VITALS: BP 129/72
[2019-06-02 07:04] LABS: ALBUMIN 2.6 g/dL (3.4-5.0); ALBUMIN/GLOBULIN RATIO 0.8 (1.0-1.7); ALK PHOS 52 U/L (46-116); ALT (SGPT) 7 U/L (16-63); ANION GAP 8 (6-14); AST (SGOT) 10 U/L (15-37); BLOOD UREA NITROGEN 14 mg/dL (8-26); BUN/CREATININE RATIO 18 (6-20); CALCIUM 8.3 mg/dL (8.5-10.1); CARBON DIOXIDE 26 mmol/L (21-32); CHLORIDE 106 mmol/L (98-107); CREATININE 0.8 mg/dL (0.7-1.3); GFR 94.2; GLUCOSE 82 mg/dL (70-99); POTASSIUM 3.9 mmol/L (3.5-5.1); SODIUM 140 mmol/L (136-145); TOTAL BILIRUBIN 0.5 mg/dL (0.2-1.0)
[2019-06-02 07:14] LABS: BASO % 0 % (0-3); EOS # 0.1 x10^3/uL (0.0-0.7); EOS % 2 % (0-3); HEMATOCRIT 32.3 % (39.0-53.0); HEMOGLOBIN 11.1 g/dL (13.0-17.5); LYMPH # 2.1 x10^3/uL (1.0-4.8); LYMPH % 40 % (24-48); MEAN CORPUSCULAR HEMOGLOBIN 31 pg (25-35); MEAN CORPUSCULAR HGB CONC 34 g/dL (31-37); MEAN CORPUSCULAR VOLUME 91 fL (79-100); MONO # 0.4 x10^3/uL (0.0-1.1); MONO % 7 % (0-9); NEUT # 2.7 x10^3uL (1.8-7.7); NEUT % 51 % (31-73); PLATELET COUNT 193 x10^3/uL (140-400); RED BLOOD COUNT 3.57 x10^6/uL (4.30-5.70); VAL ACID 31 mcg/mL (50-100); WHITE BLOOD COUNT 5.2 x10^3/uL (4.0-11.0)
[2019-06-02] MEDS: metFORMIN 500 MG TABLET PO SCH ×2 (08:03→17:26)
[2019-06-02] MEDS: ISOSORBIDE MONONITRATE ER 30 MG TAB.ER.24H PO SCH (08:03)
[2019-06-02] MEDS: ESTROGENS, CONJUGATED 0.3 MG TABLET PO SCH (08:03)
[2019-06-02] MEDS: LOSARTAN 50 MG TABLET. PO SCH (08:04)
[2019-06-02] MEDS: TAMSULOSIN 0.4 MG CAP.ER.24H. PO SCH (08:04)
[2019-06-02] MEDS: DONEPEZIL HCL 10 MG TABLET PO SCH (08:04)
[2019-06-02] MEDS: APIXABAN 2.5 MG TABLET PO SCH ×2 (08:04→20:54)
--- NOTE | 2019-06-02 15:39 | PN ---
DATE: 05/31/2019 PSYCHIATRIC PROGRESS NOTE This late entry May 31 covers elements not covered in my initial note. SUBJECTIVE: I met with the patient evening of May 31. Per Paola, the patient slept 8-1/4 hours previous night. He has been sexually inappropriate with male and female peers around him, talking about his penis and fondling himself in front of others and trying to sexually inappropriately touch another female demented patient. When nursing staff confronts him, he calls them liars. REVIEW OF SYSTEMS: Ambulation impaired, with walker/wheelchair. No CV, , pulmonary, eye system symptoms on review. MENTAL STATUS EXAM: Reasonably oriented. Speech is coherent, has some latency. Abstraction fair. Computation impaired. Language function intact. Attention span short. Mood and affect remain somewhat labile, at times withdrawn. LABORATORY DATA: Reviewed. IMPRESSION: Unchanged from initial note. PLAN: No change from initial note. MAN Marlene JAIMES MD DR: YANY/fatoumata JOB#: [id number] / [id number]
[2019-06-02 15:47] VITALS: BP 160/78
[2019-06-02] MEDS: traZODone 50 MG TABLET. PO SCH (17:26)
--- NOTE | 2019-06-02 19:04 | PN ---
DATE: 06/01/2019 PSYCHIATRIC PROGRESS NOTE This late entry, 06/01, covers the elements not covered in my initial note. SUBJECTIVE: I met with the patient in the evening and staffed at a treatment team meeting with the entire team in the morning and the patient's daughter, Mayela, attended the conference. The patient slept 8-1/2 hours, appetite 100%, compliant with medications, sexually inappropriately touching himself and attempting to touch a female peer. I addressed this with him at length and we addressed behavioral ways to refrain from this. REVIEW OF SYSTEMS: No CV, , pulmonary, eye systems symptoms on review. MENTAL STATUS EXAM: Reasonably oriented. Speech has some latency, coherent. Abstraction fair, computation impaired, language function intact. Mood and affect somewhat anxious, labile at times. LABORATORY DATA: Reviewed. IMPRESSION: Unchanged from initial note. PLAN: No change from initial note, but we will go ahead and stop the Paxil 10 mg a day since we have started Luvox for his OCD symptoms, manifesting mainly of sexually inappropriate touching behaviors and obsessiveness. MAN Marlene JAIMES MD DR: YANY/fatoumata JOB#: [id number] / [id number]
[2019-06-02] MEDS: LATANOPROST 0.005% OPHTH SOLUTION 2.5ML BOTTLE. OU SCH (20:53)
[2019-06-02] MEDS: DIVALPROEX ER 500 MG TAB.ER.24H PO SCH (20:54)
[2019-06-02] MEDS: QUEtiapine 50 MG TABLET. PO SCH (20:54)
[2019-06-02] MEDS: INSULIN GLARGINE SYRINGE. SQ SCH (21:03)
--- NOTE | 2019-06-02 21:31 | PDOC ---
Exam Note: Cy Note: Please also refer to the separate dictated note~for this date of service dictated separately.~Patient seen individually. Discussed the patient with Nursing staff reviewed the chart.~Reviewed interim history and current functioning. Reviewed vital signs,~Labs/ Radiology~and current medications noted below. Continue current treatment with the changes noted in the dictated addendum note Assessment: Vital Signs/I&O: Vital Signs Date Time Temp Pulse Resp B/P (MAP) Pulse Ox O2 Delivery O2 Flow Rate FiO2 06/02/19 15:47 97.8 65 20 160/78 (105) 97 06/01/19 16:15 Room Air I & O 06/01/19 06/01/19 06/02/19 15:00 23:00 07:00 Intake Total 600 ml 240 ml 240 ml Balance 600 ml 240 ml 240 ml Labs: Laboratory Tests Test 06/02/19 06:15 06/02/19 07:29 06/02/19 19:07 White Blood Count 5.2 x10^3/uL (4.0-11.0) Red Blood Count 3.57 x10^6/uL (4.30-5.70) L Hemoglobin 11.1 g/dL (13.0-17.5) L Hematocrit 32.3 % (39.0-53.0) L Mean Corpuscular Volume 91 fL (79-100) Mean Corpuscular Hemoglobin 31 pg (25-35) Mean Corpuscular Hemoglobin Concent 34 g/dL (31-37) Red Cell Distribution Width 15.0 % (11.5-14.5) H Platelet Count 193 x10^3/uL (140-400) Neutrophils (%) (Auto) 51 % (31-73) Lymphocytes (%) (Auto) 40 % (24-48) Monocytes (%) (Auto) 7 % (0-9) Eosinophils (%) (Auto) 2 % (0-3) Basophils (%) (Auto) 0 % (0-3) Neutrophils # (Auto) 2.7 x10^3uL (1.8-7.7) Lymphocytes # (Auto) 2.1 x10^3/uL (1.0-4.8) Monocytes # (Auto) 0.4 x10^3/uL (0.0-1.1) Eosinophils # (Auto) 0.1 x10^3/uL (0.0-0.7) Basophils # (Auto) 0.0 x10^3/uL (0.0-0.2) Sodium Level 140 mmol/L (136-145) Potassium Level 3.9 mmol/L (3.5-5.1) Chloride Level 106 mmol/L (98-107) Carbon Dioxide Level 26 mmol/L (21-32) Anion Gap 8 (6-14) Blood Urea Nitrogen 14 mg/dL (8-26) Creatinine 0.8 mg/dL (0.7-1.3) Estimated GFR (Cockcroft-Gault) 94.2 BUN/Creatinine Ratio 18 (6-20) Glucose Level 82 mg/dL (70-99) Calcium Level 8.3 mg/dL (8.5-10.1) L Total Bilirubin 0.5 mg/dL (0.2-1.0) Aspartate Amino Transferase (AST) 10 U/L (15-37) L Alanine Aminotransferase (ALT) 7 U/L (16-63) L Alkaline Phosphatase 52 U/L (46-116) Total Protein 6.0 g/dL (6.4-8.2) L Albumin 2.6 g/dL (3.4-5.0) L Albumin/Globulin Ratio 0.8 (1.0-1.7) L Valproic Acid Level 31 mcg/mL (50-100) L Valproic Acid Last Dose Date 06/01/2019 Valproic Acid Last Dose Time 2100 Glucose (Fingerstick) 78 mg/dL (70-99) 213 mg/dL (70-99) H Current Medications: Meds: Current Medications Medications (Trade) Dose Ordered Sig/Angelique Route PRN Reason Start Time Stop Time Status Last Admin Dose Admin Divalproex Sodium (Depakote Er) 1,000 mg QHS PO 06/02/19 21:00 06/02/19 20:54 I have reviewed the current psychotropics carefully including drug interactions. Risk benefit ratio favors no change other than as noted in my dictated progress note. Diagnosis: Problems: (1) History of schizophrenia (2) Vascular dementia with behavior disturbance (3) Anxiety disorder (4) Impulse disorder LEILA JAIMES MD Jun 02, 2019 21:31
[2019-06-03 06:07] VITALS: BP 133/73
[2019-06-03] MEDS: metFORMIN 500 MG TABLET PO SCH ×2 (08:45→17:13)
[2019-06-03] MEDS: DONEPEZIL HCL 10 MG TABLET PO SCH (08:45)
[2019-06-03] MEDS: TAMSULOSIN 0.4 MG CAP.ER.24H. PO SCH (08:46)
[2019-06-03] MEDS: ISOSORBIDE MONONITRATE ER 30 MG TAB.ER.24H PO SCH (08:46)
[2019-06-03] MEDS: LOSARTAN 50 MG TABLET. PO SCH (08:46)
[2019-06-03] MEDS: APIXABAN 2.5 MG TABLET PO SCH ×2 (08:46→20:29)
[2019-06-03] MEDS: CHOLECALCIFEROL (VITAMIN D3) 50,000 UNIT CAPSULE PO SCH (08:48)
[2019-06-03] MEDS: ESTROGENS, CONJUGATED 0.3 MG TABLET PO SCH (08:48)
[2019-06-03 16:37] VITALS: BP 162/74
[2019-06-03] MEDS: traZODone 50 MG TABLET. PO SCH (17:13)
[2019-06-03] MEDS: LATANOPROST 0.005% OPHTH SOLUTION 2.5ML BOTTLE. OU SCH (20:28)
[2019-06-03] MEDS: DIVALPROEX ER 500 MG TAB.ER.24H PO SCH (20:29)
[2019-06-03] MEDS: QUEtiapine 50 MG TABLET. PO SCH (20:29)
[2019-06-03] MEDS: INSULIN GLARGINE SYRINGE. SQ SCH (20:31)
--- NOTE | 2019-06-03 23:20 | PDOC ---
Exam Note: Cy Note: Please also refer to the separate dictated note~for this date of service dictated separately.~Patient seen individually. Discussed the patient with Nursing staff reviewed the chart.~Reviewed interim history and current functioning. Reviewed vital signs,~Labs/ Radiology~and current medications noted below. Continue current treatment with the changes noted in the dictated addendum note Assessment: Vital Signs/I&O: Vital Signs Date Time Temp Pulse Resp B/P (MAP) Pulse Ox O2 Delivery O2 Flow Rate FiO2 06/03/19 16:37 98.2 90 16 162/74 (103) 98 06/03/19 06:07 Room Air I & O 06/02/19 06/02/19 06/03/19 14:59 22:59 06:59 Intake Total 840 ml 480 ml 240 ml Balance 840 ml 480 ml 240 ml Labs: Laboratory Tests Test 06/03/19 07:18 06/03/19 19:19 Glucose (Fingerstick) 104 mg/dL (70-99) H 180 mg/dL (70-99) H Current Medications: Meds: Current Medications Medications (Trade) Dose Ordered Sig/Angelique Route PRN Reason Start Time Stop Time Status Last Admin Dose Admin Fluvoxamine Maleate (Luvox) 50 mg DAILY PO 06/03/19 09:00 06/03/19 08:48 I have reviewed the current psychotropics carefully including drug interactions. Risk benefit ratio favors no change other than as noted in my dictated progress note. Diagnosis: Problems: (1) History of schizophrenia (2) Vascular dementia with behavior disturbance (3) Anxiety disorder (4) Impulse disorder LEILA JAIMES MD Jun 03, 2019 23:20
[2019-06-04 05:35] VITALS: BP 153/76
[2019-06-04] MEDS: DONEPEZIL HCL 10 MG TABLET PO SCH ×2 (08:18→20:24)
[2019-06-04] MEDS: metFORMIN 500 MG TABLET PO SCH ×2 (08:18→17:03)
[2019-06-04] MEDS: LOSARTAN 50 MG TABLET. PO SCH (08:22)
[2019-06-04] MEDS: APIXABAN 2.5 MG TABLET PO SCH ×2 (08:23→20:24)
[2019-06-04] MEDS: ISOSORBIDE MONONITRATE ER 30 MG TAB.ER.24H PO SCH (08:23)
[2019-06-04] MEDS: ESTROGENS, CONJUGATED 0.3 MG TABLET PO SCH (08:23)
[2019-06-04] MEDS: TAMSULOSIN 0.4 MG CAP.ER.24H. PO SCH (08:23)
[2019-06-04 16:11] VITALS: BP 100/65
[2019-06-04] MEDS: traZODone 50 MG TABLET. PO SCH (17:03)
[2019-06-04] MEDS: LATANOPROST 0.005% OPHTH SOLUTION 2.5ML BOTTLE. OU SCH (20:23)
[2019-06-04] MEDS: QUEtiapine 50 MG TABLET. PO SCH (20:24)
[2019-06-04] MEDS: DIVALPROEX ER 500 MG TAB.ER.24H PO SCH (20:24)
[2019-06-04] MEDS: INSULIN GLARGINE SYRINGE. SQ SCH (20:27)
--- NOTE | 2019-06-04 21:47 | PDOC ---
Exam Note: Cy Note: Please also refer to the separate dictated note~for this date of service dictated separately.~Patient seen individually. Discussed the patient with Nursing staff reviewed the chart.~Reviewed interim history and current functioning. Reviewed vital signs,~Labs/ Radiology~and current medications noted below. Continue current treatment with the changes noted in the dictated addendum note Assessment: Vital Signs/I&O: Vital Signs Date Time Temp Pulse Resp B/P (MAP) Pulse Ox O2 Delivery O2 Flow Rate FiO2 06/04/19 16:11 97.3 88 18 100/65 (77) 97 06/03/19 06:07 Room Air I & O 06/03/19 06/03/19 06/04/19 15:00 23:00 07:00 Intake Total 600 ml 240 ml Balance 600 ml 240 ml Labs: Laboratory Tests Test 06/04/19 07:36 06/04/19 20:04 Glucose (Fingerstick) 72 mg/dL (70-99) 160 mg/dL (70-99) H Current Medications: I have reviewed the current psychotropics carefully including drug interactions. Risk benefit ratio favors no change other than as noted in my dictated progress note. Diagnosis: Problems: (1) History of schizophrenia (2) Vascular dementia with behavior disturbance (3) Anxiety disorder (4) Impulse disorder (5) Hypomagnesemia LEILA JAIMES MD Jun 04, 2019 21:47
[2019-06-05 05:28] VITALS: BP 156/83
[2019-06-05] MEDS: metFORMIN 500 MG TABLET PO SCH ×2 (08:12→17:03)
[2019-06-05] MEDS: DONEPEZIL HCL 10 MG TABLET PO SCH (08:12)
[2019-06-05] MEDS: APIXABAN 2.5 MG TABLET PO SCH ×2 (08:13→20:06)
[2019-06-05] MEDS: ISOSORBIDE MONONITRATE ER 30 MG TAB.ER.24H PO SCH (08:13)
[2019-06-05] MEDS: TAMSULOSIN 0.4 MG CAP.ER.24H. PO SCH (08:13)
[2019-06-05] MEDS: LOSARTAN 50 MG TABLET. PO SCH (08:13)
[2019-06-05] MEDS: ESTROGENS, CONJUGATED 0.3 MG TABLET PO SCH (08:14)
[2019-06-05 16:01] VITALS: BP 151/75
--- NOTE | 2019-06-05 16:04 | PN ---
DATE: 06/02/2019 PSYCHIATRIC PROGRESS NOTE This late entry 06/02/2019 covers elements not covered in my initial note. SUBJECTIVE: I met with the patient in the evening of 06/02/2019. Per NELL Freedman, the patient slept 7-1/2 hours previous night. Valproic acid level is 31. He has not been sexually inappropriate, compliant with his medications. Spending time in the day room, which is where I met with him. REVIEW OF SYSTEMS: Ambulation impaired, in wheelchair. No CV, , pulmonary, eye system symptoms on review. MENTAL STATUS EXAM: Reasonably oriented. Speech has some latency, coherent. Abstraction fair, computation impaired, language function intact, attention span short. Mood and affect somewhat anxious, labile. LABORATORY DATA: Reviewed. IMPRESSION: Unchanged from initial note. PLAN: Increase Depakote ER to 1000 mg at bedtime. Check CBC, CMP, valproic acid level, ammonia level in 3 days. Adjust to reach therapeutic level. Rest unchanged for now. MAN Marlene JAIMES MD DR: YANY/fatoumata JOB#: [id number] / [id number]
[2019-06-05] MEDS: traZODone 50 MG TABLET. PO SCH (17:03)
[2019-06-05] MEDS: DIVALPROEX ER 500 MG TAB.ER.24H PO SCH (20:06)
[2019-06-05] MEDS: QUEtiapine 50 MG TABLET. PO SCH (20:06)
[2019-06-05] MEDS: LATANOPROST 0.005% OPHTH SOLUTION 2.5ML BOTTLE. OU SCH (20:06)
--- NOTE | 2019-06-05 20:38 | PN ---
DATE: 06/03/2019 PSYCHIATRIC PROGRESS NOTE This late entry 06/03/2019 covers elements not covered in my initial note. SUBJECTIVE: I met with the patient evening of 06/03/2019. The patient slept 10 hours previous night. Overall, per nursing staff, he has done better at night and no sexually inappropriate behaviors during the day. REVIEW OF SYSTEMS: Ambulation impaired, in wheelchair. No CV, , pulmonary, eye, ENT system symptoms on review. Reliability fair. MENTAL STATUS EXAM: Reasonably oriented. Speech is coherent, abstraction fair, computation impaired, language function intact, attention span short. Mood and affect, less labile, less sexually inappropriate and impulsive. LABORATORY DATA: Reviewed. IMPRESSION: Unchanged from initial note. Schizoaffective disorder, bipolar type, mixed; anxiety disorder, unspecified; obsessive-compulsive disorder. Rest unchanged. PLAN: No change from initial note. MAN Marlene JAIMES MD DR: YANY/fatoumata JOB#: [id number] / [id number]
--- NOTE | 2019-06-05 20:40 | PN ---
DATE: 06/04/2019 PSYCHIATRIC PROGRESS NOTE This late entry 06/04/2019 covers elements not covered in my initial note. SUBJECTIVE: I met with the patient evening of 06/04/2019. The patient slept 8-1/2 hours previous night. Overall, per nursing report, he did well until dinner time and then was sexually inappropriate with another male patient and telling him to "take it out." He was standing inappropriately with this patient. I addressed this with him at some length individually. Labs are to be drawn on the and we will adjust the Depakote thereafter. Luvox is being adjusted. REVIEW OF SYSTEMS: Ambulation impaired, in wheelchair. No CV, , pulmonary, eye system symptoms on review. MENTAL STATUS EXAM: Reasonably oriented. Speech is coherent, abstraction fair, computation impaired, language function intact, attention span short. Mood and affect remain somewhat labile, anxious. LABORATORY DATA: Reviewed. IMPRESSION: Bipolar disorder, mixed; anxiety disorder, unspecified; impulse control disorder. Rest unchanged. PLAN: Continue current psychotropics. Check labs on the . Rest unchanged for now and increase Luvox gradually, adjust Depakote. MAN Marlene JAIMES MD DR: YANY/fatoumata JOB#: [id number] / [id number]
[2019-06-05] MEDS: INSULIN GLARGINE SYRINGE. SQ SCH (20:55)
--- NOTE | 2019-06-05 21:10 | PDOC ---
Exam Note: Cy Note: Please also refer to the separate dictated note~for this date of service dictated separately.~Patient seen individually. Discussed the patient with Nursing staff reviewed the chart.~Reviewed interim history and current functioning. Reviewed vital signs,~Labs/ Radiology~and current medications noted below. Continue current treatment with the changes noted in the dictated addendum note Assessment: Vital Signs/I&O: Vital Signs Date Time Temp Pulse Resp B/P (MAP) Pulse Ox O2 Delivery O2 Flow Rate FiO2 06/05/19 16:01 98.3 84 18 151/75 (100) 100 06/03/19 06:07 Room Air I & O 06/04/19 06/04/19 06/05/19 15:00 23:00 07:00 Intake Total 600 ml 360 ml Balance 600 ml 360 ml Labs: Laboratory Tests Test 06/05/19 08:09 06/05/19 19:03 Glucose (Fingerstick) 81 mg/dL (70-99) 163 mg/dL (70-99) H Current Medications: I have reviewed the current psychotropics carefully including drug interactions. Risk benefit ratio favors no change other than as noted in my dictated progress note. Diagnosis: Problems: (1) History of schizophrenia (2) Vascular dementia with behavior disturbance (3) Anxiety disorder (4) Impulse disorder LEILA JAIMES MD Jun 05, 2019 21:10
[2019-06-06 05:44] VITALS: BP 161/74
[2019-06-06 07:54] LABS: BASO % 1 % (0-3); EOS # 0.1 x10^3/uL (0.0-0.7); EOS % 1 % (0-3); HEMATOCRIT 36.9 % (39.0-53.0); HEMOGLOBIN 12.4 g/dL (13.0-17.5); LYMPH # 2.1 x10^3/uL (1.0-4.8); LYMPH % 33 % (24-48); MEAN CORPUSCULAR HEMOGLOBIN 31 pg (25-35); MEAN CORPUSCULAR HGB CONC 34 g/dL (31-37); MEAN CORPUSCULAR VOLUME 93 fL (79-100); MONO # 0.5 x10^3/uL (0.0-1.1); MONO % 7 % (0-9); NEUT # 3.8 x10^3uL (1.8-7.7); NEUT % 58 % (31-73); PLATELET COUNT 224 x10^3/uL (140-400); RED BLOOD COUNT 3.97 x10^6/uL (4.30-5.70); RED CELL DISTRIBUTION WIDTH 14.6 % (11.5-14.5); WHITE BLOOD COUNT 6.5 x10^3/uL (4.0-11.0)
[2019-06-06 08:05] LABS: ALBUMIN 3.1 g/dL (3.4-5.0); ALBUMIN/GLOBULIN RATIO 0.9 (1.0-1.7); ALK PHOS 58 U/L (46-116); ALT (SGPT) 11 U/L (16-63); ANION GAP 12 (6-14); AST (SGOT) 7 U/L (15-37); BLOOD UREA NITROGEN 16 mg/dL (8-26); BUN/CREATININE RATIO 20 (6-20); CALCIUM 8.7 mg/dL (8.5-10.1); CARBON DIOXIDE 23 mmol/L (21-32); CHLORIDE 106 mmol/L (98-107); CREATININE 0.8 mg/dL (0.7-1.3); GFR 94.2; GLUCOSE 78 mg/dL (70-99); POTASSIUM 4.1 mmol/L (3.5-5.1); SODIUM 141 mmol/L (136-145); TOTAL BILIRUBIN 0.4 mg/dL (0.2-1.0); TOTAL PROTEIN 6.7 g/dL (6.4-8.2)
[2019-06-06 08:14] LABS: VAL ACID 77 mcg/mL (50-100)
[2019-06-06] MEDS: ESTROGENS, CONJUGATED 0.3 MG TABLET PO SCH (10:31)
[2019-06-06] MEDS: ISOSORBIDE MONONITRATE ER 30 MG TAB.ER.24H PO SCH (10:31)
[2019-06-06] MEDS: TAMSULOSIN 0.4 MG CAP.ER.24H. PO SCH (10:31)
[2019-06-06] MEDS: LOSARTAN 50 MG TABLET. PO SCH (10:32)
[2019-06-06] MEDS: APIXABAN 2.5 MG TABLET PO SCH ×2 (10:32→21:22)
[2019-06-06] MEDS: metFORMIN 500 MG TABLET PO SCH ×2 (10:32→17:27)
[2019-06-06] MEDS: DONEPEZIL HCL 10 MG TABLET PO SCH (10:32)
[2019-06-06 16:23] VITALS: BP 105/69
[2019-06-06] MEDS: traZODone 50 MG TABLET. PO SCH (17:27)
--- NOTE | 2019-06-06 21:05 | PDOC ---
Exam Note: Cy Note: Please also refer to the separate dictated note~for this date of service dictated separately.~Patient seen individually. Discussed the patient with Nursing staff reviewed the chart.~Reviewed interim history and current functioning. Reviewed vital signs,~Labs/ Radiology~and current medications noted below. Continue current treatment with the changes noted in the dictated addendum note Assessment: Vital Signs/I&O: Vital Signs Date Time Temp Pulse Resp B/P (MAP) Pulse Ox O2 Delivery O2 Flow Rate FiO2 06/06/19 16:23 97.3 97 16 105/69 (81) 98 06/03/19 06:07 Room Air I & O 06/05/19 06/05/19 06/06/19 15:00 23:00 07:00 Intake Total 600 ml 180 ml Balance 600 ml 180 ml Labs: Laboratory Tests Test 06/06/19 07:35 White Blood Count 6.5 x10^3/uL (4.0-11.0) Red Blood Count 3.97 x10^6/uL (4.30-5.70) L Hemoglobin 12.4 g/dL (13.0-17.5) L Hematocrit 36.9 % (39.0-53.0) L Mean Corpuscular Volume 93 fL (79-100) Mean Corpuscular Hemoglobin 31 pg (25-35) Mean Corpuscular Hemoglobin Concent 34 g/dL (31-37) Red Cell Distribution Width 14.6 % (11.5-14.5) H Platelet Count 224 x10^3/uL (140-400) Neutrophils (%) (Auto) 58 % (31-73) Lymphocytes (%) (Auto) 33 % (24-48) Monocytes (%) (Auto) 7 % (0-9) Eosinophils (%) (Auto) 1 % (0-3) Basophils (%) (Auto) 1 % (0-3) Neutrophils # (Auto) 3.8 x10^3uL (1.8-7.7) Lymphocytes # (Auto) 2.1 x10^3/uL (1.0-4.8) Monocytes # (Auto) 0.5 x10^3/uL (0.0-1.1) Eosinophils # (Auto) 0.1 x10^3/uL (0.0-0.7) Basophils # (Auto) 0.0 x10^3/uL (0.0-0.2) Sodium Level 141 mmol/L (136-145) Potassium Level 4.1 mmol/L (3.5-5.1) Chloride Level 106 mmol/L (98-107) Carbon Dioxide Level 23 mmol/L (21-32) Anion Gap 12 (6-14) Blood Urea Nitrogen 16 mg/dL (8-26) Creatinine 0.8 mg/dL (0.7-1.3) Estimated GFR (Cockcroft-Gault) 94.2 BUN/Creatinine Ratio 20 (6-20) Glucose Level 78 mg/dL (70-99) Calcium Level 8.7 mg/dL (8.5-10.1) Total Bilirubin 0.4 mg/dL (0.2-1.0) Aspartate Amino Transferase (AST) 7 U/L (15-37) L Alanine Aminotransferase (ALT) 11 U/L (16-63) L Alkaline Phosphatase 58 U/L (46-116) Ammonia < 10 mcmol/L (11-34) L Total Protein 6.7 g/dL (6.4-8.2) Albumin 3.1 g/dL (3.4-5.0) L Albumin/Globulin Ratio 0.9 (1.0-1.7) L Valproic Acid Level 77 mcg/mL (50-100) Valproic Acid Last Dose Date 06/05/19 Valproic Acid Last Dose Time 2100 Current Medications: I have reviewed the current psychotropics carefully including drug interactions. Risk benefit ratio favors no change other than as noted in my dictated progress note. Diagnosis: Problems: (1) History of schizophrenia (2) Vascular dementia with behavior disturbance (3) CKD (chronic kidney disease) stage 3, GFR 30-59 ml/min (4) Anxiety disorder (5) Impulse disorder (6) Hypomagnesemia LEILA JAIMES MD Jun 06, 2019 21:05
[2019-06-06] MEDS: LATANOPROST 0.005% OPHTH SOLUTION 2.5ML BOTTLE. OU SCH (21:21)
[2019-06-06] MEDS: DIVALPROEX ER 500 MG TAB.ER.24H PO SCH (21:22)
[2019-06-06] MEDS: QUEtiapine 50 MG TABLET. PO SCH (21:22)
[2019-06-06] MEDS: INSULIN GLARGINE SYRINGE. SQ SCH (21:25)
--- NOTE | 2019-06-07 03:49 | PN ---
DATE: 06/05/2019 PSYCHIATRIC PROGRESS NOTE This late entry 06/05/2019 covers elements not covered in my initial note. SUBJECTIVE: I met with the patient evening of 06/05/2019. Per NELL Watkins, the patient slept 7 hours previous night. He has done well previous night and during the day. No sexually inappropriate behaviors noted. I met with him in his room at length in the evening of 06/05/2019. REVIEW OF SYSTEMS: No CV, , pulmonary, eye system symptoms on review. Gait unsteady, in wheelchair. MENTAL STATUS EXAMINATION: Reasonably oriented. Speech is coherent, has some latency. Abstraction fair, computation impaired, language function intact, attention span short. Mood and affect somewhat withdrawn. LABORATORY DATA: Reviewed. IMPRESSION: Unchanged from initial note. PLAN: No change from initial note. MAN Marlene JAIMES MD DR: YANY/fatoumata JOB#: [id number] / [id number]
[2019-06-07 04:39] VITALS: BP_SYST 127; BP_DIAS 64; BP_DIAS 66
[2019-06-07] MEDS: DONEPEZIL HCL 10 MG TABLET PO SCH (09:22)
[2019-06-07] MEDS: ESTROGENS, CONJUGATED 0.3 MG TABLET PO SCH (09:22)
[2019-06-07] MEDS: metFORMIN 500 MG TABLET PO SCH ×2 (09:22→17:13)
[2019-06-07] MEDS: APIXABAN 2.5 MG TABLET PO SCH ×2 (09:23→20:23)
[2019-06-07] MEDS: ISOSORBIDE MONONITRATE ER 30 MG TAB.ER.24H PO SCH (09:23)
[2019-06-07] MEDS: LOSARTAN 50 MG TABLET. PO SCH (09:23)
[2019-06-07] MEDS: TAMSULOSIN 0.4 MG CAP.ER.24H. PO SCH (09:23)
[2019-06-07 15:54] VITALS: BP 155/91
[2019-06-07] MEDS: traZODone 50 MG TABLET. PO SCH (17:13)
[2019-06-07] MEDS: QUEtiapine 50 MG TABLET. PO SCH (20:23)
[2019-06-07] MEDS: DIVALPROEX ER 500 MG TAB.ER.24H PO SCH (20:23)
[2019-06-07] MEDS: INSULIN GLARGINE SYRINGE. SQ SCH (20:26)
[2019-06-07] MEDS: LATANOPROST 0.005% OPHTH SOLUTION 2.5ML BOTTLE. OU SCH (21:00)
--- NOTE | 2019-06-07 21:39 | PDOC ---
Exam Note: Cy Note: Please also refer to the separate dictated note~for this date of service dictated separately.~Patient seen individually. Discussed the patient with Nursing staff reviewed the chart.~Reviewed interim history and current functioning. Reviewed vital signs,~Labs/ Radiology~and current medications noted below. Continue current treatment with the changes noted in the dictated addendum note Assessment: Vital Signs/I&O: Vital Signs Date Time Temp Pulse Resp B/P (MAP) Pulse Ox O2 Delivery O2 Flow Rate FiO2 06/07/19 15:54 98.1 75 18 155/91 (112) 100 06/03/19 06:07 Room Air I & O 06/06/19 06/06/19 06/07/19 15:00 23:00 07:00 Intake Total 600 ml 240 ml 120 ml Balance 600 ml 240 ml 120 ml Current Medications: Meds: Current Medications Medications (Trade) Dose Ordered Sig/Angelique Route PRN Reason Start Time Stop Time Status Last Admin Dose Admin Fluvoxamine Maleate (Luvox) 75 mg DAILY PO 06/07/19 09:00 06/07/19 09:22 I have reviewed the current psychotropics carefully including drug interactions. Risk benefit ratio favors no change other than as noted in my dictated progress note. Diagnosis: Problems: (1) History of schizophrenia (2) Vascular dementia with behavior disturbance (3) Anxiety disorder (4) Impulse disorder (5) Hypomagnesemia LEILA JAIMES MD Jun 07, 2019 21:39
[2019-06-08 05:13] VITALS: BP 148/78
[2019-06-08] MEDS: metFORMIN 500 MG TABLET PO SCH ×2 (07:44→17:20)
[2019-06-08] MEDS: TAMSULOSIN 0.4 MG CAP.ER.24H. PO SCH (07:44)
[2019-06-08] MEDS: LOSARTAN 50 MG TABLET. PO SCH (07:44)
[2019-06-08] MEDS: DONEPEZIL HCL 10 MG TABLET PO SCH (07:44)
[2019-06-08] MEDS: APIXABAN 2.5 MG TABLET PO SCH ×2 (07:45→20:42)
[2019-06-08] MEDS: ISOSORBIDE MONONITRATE ER 30 MG TAB.ER.24H PO SCH (07:45)
[2019-06-08] MEDS: ESTROGENS, CONJUGATED 0.3 MG TABLET PO SCH (07:46)
--- NOTE | 2019-06-08 09:31 | PN ---
DATE: 06/06/2019 PSYCHIATRIC PROGRESS NOTE This late entry 06/06/2019 covers elements not covered in my initial note. SUBJECTIVE: I met with the patient evening of 06/06/2019. Per NELL Osei, the patient slept 6-3/4 hours previous night. He has been compliant with his medications, took them appropriately during the day. He made a comment to social service staff and nursing staff "if you shoot me I will get a bullet." I processed this with him. He minimizes rationalizes and said he was anxious and appeared to react negatively when staff confronted him on being sexually inappropriate to a demented female patient on the unit when he was trying to get her into his room. He denied active suicidal ideation. REVIEW OF SYSTEMS: Ambulation impaired with walker. No CV, , pulmonary, eye system symptoms on review. MENTAL STATUS EXAM: Oriented reasonably. Speech is coherent, abstraction fair, computation impaired, language function intact, attention span short. Mood and affect remain somewhat anxious, labile. LABORATORY DATA: Reviewed. IMPRESSION: Unchanged from initial note. PLAN: No change from initial note. MAN Marlene JAIMES MD DR: YANY/fatoumata JOB#: [id number] / [id number]
--- NOTE | 2019-06-08 15:12 | RAD ---
CT HEAD WO CONTRAST Clinical indications: Change in mental status COMPARISON: None available. Technique: Noncontrast axial cross sectional scanning of the head was performed. PQRS compliance Statement One or more of the following individualized dose reduction techniques were utilized for this study: 1. Automated exposure control 2. Adjustment of the mA and/or kV according to patient size 3. Use of iterative reconstruction technique Findings: No acute intracranial hemorrhage or midline shift or mass-effect or hydrocephalus or extra-axial fluid collection is seen. Mild bilateral periventricular white matter hypodensity is seen consistent with chronic small vessel ischemic disease in this age group. There is a more focally prominent area of hypodensity involving the right centrum semiovale bilaterally which measures 15 mm in size. This is consistent with an infarct which may be subacute or chronic in nature. It appears fairly black in color similar to the CSF of the adjacent right lateral ventricle. Therefore this most likely represents an old infarct. Clinical correlation is recommended. No skull fracture or pneumocephalus is seen. No opacification of the mastoid sinuses or the middle ear cavities or the paranasal sinuses is seen. The maxillary sinuses are not completely seen in this study. Impression: No acute intracranial hemorrhage is seen. Chronic small vessel ischemic disease of the periventricular white matter. 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 Clinical correlation is recommended. Electronically signed by: Morgan Chung MD (06/08/2019 3:09 PM) [facility]
[2019-06-08 15:37] VITALS: BP 103/63
[2019-06-08] MEDS: traZODone 50 MG TABLET. PO SCH (17:19)
[2019-06-08] MEDS: LATANOPROST 0.005% OPHTH SOLUTION 2.5ML BOTTLE. OU SCH (20:42)
[2019-06-08] MEDS: DIVALPROEX ER 500 MG TAB.ER.24H PO SCH (20:42)
[2019-06-08] MEDS: QUEtiapine 50 MG TABLET. PO SCH (20:42)
[2019-06-08] MEDS: INSULIN GLARGINE SYRINGE. SQ SCH (20:46)
--- NOTE | 2019-06-08 21:36 | PDOC ---
Exam Note: Cy Note: Please also refer to the separate dictated note~for this date of service dictated separately.~Patient seen individually. Discussed the patient with Nursing staff reviewed the chart.~Reviewed interim history and current functioning. Reviewed vital signs,~Labs/ Radiology~and current medications noted below. Continue current treatment with the changes noted in the dictated addendum note Assessment: Vital Signs/I&O: Vital Signs Date Time Temp Pulse Resp B/P (MAP) Pulse Ox O2 Delivery O2 Flow Rate FiO2 06/08/19 15:37 97.6 86 20 103/63 (76) 100 06/03/19 06:07 Room Air I & O 06/07/19 06/07/19 06/08/19 15:00 23:00 07:00 Intake Total 600 ml 120 ml 240 ml Balance 600 ml 120 ml 240 ml Current Medications: I have reviewed the current psychotropics carefully including drug interactions. Risk benefit ratio favors no change other than as noted in my dictated progress note. Diagnosis: Problems: (1) History of schizophrenia (2) Vascular dementia with behavior disturbance (3) Anxiety disorder (4) Impulse disorder LEILA JAIMES MD Jun 08, 2019 21:36
[2019-06-09 05:33] VITALS: BP 145/78
[2019-06-09] MEDS: ESTROGENS, CONJUGATED 0.3 MG TABLET PO SCH (08:01)
[2019-06-09] MEDS: metFORMIN 500 MG TABLET PO SCH ×2 (08:02→17:16)
[2019-06-09] MEDS: LOSARTAN 50 MG TABLET. PO SCH (08:02)
[2019-06-09] MEDS: APIXABAN 2.5 MG TABLET PO SCH ×2 (08:02→20:05)
[2019-06-09] MEDS: TAMSULOSIN 0.4 MG CAP.ER.24H. PO SCH (08:02)
[2019-06-09] MEDS: DONEPEZIL HCL 10 MG TABLET PO SCH (08:02)
[2019-06-09] MEDS: ISOSORBIDE MONONITRATE ER 30 MG TAB.ER.24H PO SCH (08:03)
[2019-06-09 15:59] VITALS: BP 141/61
[2019-06-09] MEDS: traZODone 50 MG TABLET. PO SCH (17:16)
[2019-06-09] MEDS: QUEtiapine 50 MG TABLET. PO SCH (20:05)
[2019-06-09] MEDS: LATANOPROST 0.005% OPHTH SOLUTION 2.5ML BOTTLE. OU SCH (20:05)
[2019-06-09] MEDS: DIVALPROEX ER 500 MG TAB.ER.24H PO SCH (20:05)
[2019-06-09] MEDS: INSULIN GLARGINE SYRINGE. SQ SCH (20:08)
--- NOTE | 2019-06-09 21:30 | PDOC ---
Exam Note: Cy Note: Please also refer to the separate dictated note~for this date of service dictated separately.~Patient seen individually. Discussed the patient with Nursing staff reviewed the chart.~Reviewed interim history and current functioning. Reviewed vital signs,~Labs/ Radiology~and current medications noted below. Continue current treatment with the changes noted in the dictated addendum note Assessment: Vital Signs/I&O: Vital Signs Date Time Temp Pulse Resp B/P (MAP) Pulse Ox O2 Delivery O2 Flow Rate FiO2 06/09/19 15:59 97.8 59 18 141/61 (87) 97 I & O 06/08/19 06/08/19 06/09/19 15:00 23:00 07:00 Intake Total 600 ml 240 ml 240 ml Balance 600 ml 240 ml 240 ml Labs: Laboratory Tests Test 06/09/19 19:04 Glucose (Fingerstick) 159 mg/dL (70-99) H Current Medications: I have reviewed the current psychotropics carefully including drug interactions. Risk benefit ratio favors no change other than as noted in my dictated progress note. Diagnosis: Problems: (1) History of schizophrenia (2) Vascular dementia with behavior disturbance (3) Anxiety disorder (4) Impulse disorder LEILA JAIMES MD Jun 09, 2019 21:30
--- NOTE | 2019-06-10 03:21 | PN ---
DATE: 06/07/2019 PSYCHIATRIC PROGRESS NOTE This late entry, 06/07/2019, covers elements not covered in my initial note. SUBJECTIVE: I met with the patient in the evening. Per Yessy, the patient slept 6 hours the previous night, did well in the morning, somewhat sexually inappropriate in the afternoon, trying to kiss a demented female patient, staff intervened. I addressed this with him at length. REVIEW OF SYSTEMS: Ambulation impaired, in wheelchair. No CV, , pulmonary, eye system symptoms on review. MENTAL STATUS EXAM: Oriented reasonably. Speech is coherent, abstraction fair, computation impaired, language function intact, attention span short. Insight somewhat limited, but improving. LABORATORY DATA: Reviewed. IMPRESSION: Unchanged from initial note. PLAN: Valproic acid level on 06/06/2019 was 77, therapeutic. We have increased the Luvox to 75 mg a day. Continue Depo-Provera along with Premarin, Aricept, trazodone and Seroquel at current dosage, adjust further as clinically indicated. MAN Marlene JAIMES MD DR: YANY/fatoumata JOB#: [id number] / [id number]
[2019-06-10 05:40] VITALS: BP 149/79
--- NOTE | 2019-06-10 07:30 | PN ---
DATE: 06/08/2019 PSYCHIATRIC PROGRESS NOTE This late entry, 06/08/2019, covers elements not covered in my initial note. SUBJECTIVE: I met with the patient the evening of 06/08/2019 and staffed a treatment team meeting with the entire team in the morning. The patient's appetite is 75%, sleeping average 8 hours, slept 6-1/4 hours previous night. We looked for past imaging studies of the brain, none was noted, and we will go ahead and do a CT head to look for any frontal lobe damage given his ongoing sexually inappropriate behaviors, which persists despite multiple psychotropics both for his OCD and bipolar disorder; this is along with hormonal therapy. REVIEW OF SYSTEMS: Ambulation is impaired, with walker. No CV, , pulmonary, eye system symptoms on review. MENTAL STATUS EXAM: Reasonably oriented. Speech is coherent. Abstraction is fair. Computation impaired. Language function intact. Attention span short. Mood and affect remain somewhat labile. LABORATORY DATA: Reviewed. IMPRESSION: Bipolar disorder, mixed with psychotic features; impulse control disorder; mild cognitive impairment; anxiety disorder, unspecified; obsessive compulsive disorder. PLAN: Continue current psychotropics. Valproic acid level is therapeutic at 77, may need to further increase the Luvox. Check CT head as noted. I had a lengthy discussion with the patient in the evening about the sexually inappropriate behaviors because there was yet another incident with a female demented patient. The patient minimizes, rationalizes, denies and we addressed this at length. MAN Marlene JAIMES MD DR: YANY/fatoumata JOB#: [id number] / [id number]
[2019-06-10] MEDS: ESTROGENS, CONJUGATED 0.3 MG TABLET PO SCH (08:31)
[2019-06-10] MEDS: TAMSULOSIN 0.4 MG CAP.ER.24H. PO SCH (08:32)
[2019-06-10] MEDS: APIXABAN 2.5 MG TABLET PO SCH ×2 (08:32→20:24)
[2019-06-10] MEDS: LOSARTAN 50 MG TABLET. PO SCH (08:32)
[2019-06-10] MEDS: DONEPEZIL HCL 10 MG TABLET PO SCH (08:32)
[2019-06-10] MEDS: metFORMIN 500 MG TABLET PO SCH ×2 (08:33→17:25)
[2019-06-10] MEDS: ISOSORBIDE MONONITRATE ER 30 MG TAB.ER.24H PO SCH (09:00)
[2019-06-10] MEDS: CHOLECALCIFEROL (VITAMIN D3) 50,000 UNIT CAPSULE PO SCH (09:00)
[2019-06-10 15:41] VITALS: BP 149/70
[2019-06-10] MEDS: traZODone 50 MG TABLET. PO SCH (17:25)
[2019-06-10] MEDS: DIVALPROEX ER 500 MG TAB.ER.24H PO SCH (20:24)
[2019-06-10] MEDS: QUEtiapine 50 MG TABLET. PO SCH (20:24)
[2019-06-10] MEDS: LATANOPROST 0.005% OPHTH SOLUTION 2.5ML BOTTLE. OU SCH (20:24)
[2019-06-10] MEDS: INSULIN GLARGINE SYRINGE. SQ SCH (20:29)
--- NOTE | 2019-06-10 23:16 | PDOC ---
Exam Note: Cy Note: Please also refer to the separate dictated note~for this date of service dictated separately.~Patient seen individually. Discussed the patient with Nursing staff reviewed the chart.~Reviewed interim history and current functioning. Reviewed vital signs,~Labs/ Radiology~and current medications noted below. Continue current treatment with the changes noted in the dictated addendum note Assessment: Vital Signs/I&O: Vital Signs Date Time Temp Pulse Resp B/P (MAP) Pulse Ox O2 Delivery O2 Flow Rate FiO2 06/10/19 15:41 97.4 64 18 149/70 (96) 97 I & O 06/09/19 06/09/19 06/10/19 15:00 23:00 07:00 Intake Total 720 ml 600 ml Balance 720 ml 600 ml Labs: Laboratory Tests Test 06/10/19 07:15 06/10/19 19:17 06/10/19 20:33 Glucose (Fingerstick) 82 mg/dL (70-99) 170 mg/dL (70-99) H 112 mg/dL (70-99) H Current Medications: I have reviewed the current psychotropics carefully including drug interactions. Risk benefit ratio favors no change other than as noted in my dictated progress note. Diagnosis: Problems: (1) History of schizophrenia (2) Vascular dementia with behavior disturbance (3) Anxiety disorder (4) Impulse disorder LEILA JAIMES MD Jun 10, 2019 23:16
[2019-06-11 05:52] VITALS: BP 150/83
[2019-06-11 08:41] LABS: BASO % 1 % (0-3); EOS # 0.1 x10^3/uL (0.0-0.7); EOS % 1 % (0-3); HEMATOCRIT 38.9 % (39.0-53.0); LYMPH # 1.9 x10^3/uL (1.0-4.8); LYMPH % 34 % (24-48); MEAN CORPUSCULAR HEMOGLOBIN 31 pg (25-35); MEAN CORPUSCULAR HGB CONC 33 g/dL (31-37); MEAN CORPUSCULAR VOLUME 92 fL (79-100); MONO # 0.4 x10^3/uL (0.0-1.1); MONO % 7 % (0-9); NEUT # 3.3 x10^3uL (1.8-7.7); NEUT % 58 % (31-73); PLATELET COUNT 224 x10^3/uL (140-400); RED BLOOD COUNT 4.21 x10^6/uL (4.30-5.70); RED CELL DISTRIBUTION WIDTH 14.7 % (11.5-14.5); WHITE BLOOD COUNT 5.6 x10^3/uL (4.0-11.0)
[2019-06-11] MEDS ORDERED: CYANOCOBALAMIN (VITAMIN B-12) 1,000 MCG/ML VIAL IM SCH (09:00)
[2019-06-11 09:03] LABS: ALBUMIN 3.1 g/dL (3.4-5.0); ALBUMIN/GLOBULIN RATIO 0.7 (1.0-1.7); CALCIUM 9.1 mg/dL (8.5-10.1); CREATININE 0.9 mg/dL (0.7-1.3); GFR 82.3; MAGNESIUM 1.4 mg/dL (1.8-2.4); POTASSIUM 4.2 mmol/L (3.5-5.1); TOTAL BILIRUBIN 0.4 mg/dL (0.2-1.0); TOTAL PROTEIN 7.4 g/dL (6.4-8.2)
[2019-06-11] MEDS: ESTROGENS, CONJUGATED 0.3 MG TABLET PO SCH (09:05)
[2019-06-11] MEDS: DONEPEZIL HCL 10 MG TABLET PO SCH (09:05)
[2019-06-11] MEDS: ISOSORBIDE MONONITRATE ER 30 MG TAB.ER.24H PO SCH (09:06)
[2019-06-11] MEDS: metFORMIN 500 MG TABLET PO SCH ×2 (09:06→17:18)
[2019-06-11] MEDS: APIXABAN 2.5 MG TABLET PO SCH ×2 (09:07→19:32)
[2019-06-11] MEDS: TAMSULOSIN 0.4 MG CAP.ER.24H. PO SCH (09:07)
[2019-06-11] MEDS: LOSARTAN 50 MG TABLET. PO SCH (09:07)
[2019-06-11 15:42] VITALS: BP 145/57
[2019-06-11] MEDS: traZODone 50 MG TABLET. PO SCH (17:18)
[2019-06-11] MEDS: LATANOPROST 0.005% OPHTH SOLUTION 2.5ML BOTTLE. OU SCH (19:31)
[2019-06-11] MEDS: DIVALPROEX ER 500 MG TAB.ER.24H PO SCH (19:32)
[2019-06-11] MEDS: QUEtiapine 50 MG TABLET. PO SCH (19:32)
[2019-06-11] MEDS: INSULIN GLARGINE SYRINGE. SQ SCH (19:35)
--- NOTE | 2019-06-11 20:34 | PDOC ---
Exam Note: Cy Note: Please also refer to the separate dictated note~for this date of service dictated separately.~Patient seen individually. Discussed the patient with Nursing staff reviewed the chart.~Reviewed interim history and current functioning. Reviewed vital signs,~Labs/ Radiology~and current medications noted below. Continue current treatment with the changes noted in the dictated addendum note Assessment: Vital Signs/I&O: Vital Signs Date Time Temp Pulse Resp B/P (MAP) Pulse Ox O2 Delivery O2 Flow Rate FiO2 06/11/19 15:42 97.6 74 20 145/57 (86) 99 06/11/19 05:52 Room Air I & O 06/10/19 06/10/19 06/11/19 15:00 23:00 07:00 Intake Total 720 ml 240 ml 120 ml Balance 720 ml 240 ml 120 ml Labs: Laboratory Tests Test 06/11/19 06:04 06/11/19 06:38 06/11/19 07:55 06/11/19 19:05 Glucose (Fingerstick) 73 mg/dL (70-99) 101 mg/dL (70-99) H 174 mg/dL (70-99) H White Blood Count 5.6 x10^3/uL (4.0-11.0) Red Blood Count 4.21 x10^6/uL (4.30-5.70) L Hemoglobin 13.0 g/dL (13.0-17.5) Hematocrit 38.9 % (39.0-53.0) L Mean Corpuscular Volume 92 fL (79-100) Mean Corpuscular Hemoglobin 31 pg (25-35) Mean Corpuscular Hemoglobin Concent 33 g/dL (31-37) Red Cell Distribution Width 14.7 % (11.5-14.5) H Platelet Count 224 x10^3/uL (140-400) Neutrophils (%) (Auto) 58 % (31-73) Lymphocytes (%) (Auto) 34 % (24-48) Monocytes (%) (Auto) 7 % (0-9) Eosinophils (%) (Auto) 1 % (0-3) Basophils (%) (Auto) 1 % (0-3) Neutrophils # (Auto) 3.3 x10^3uL (1.8-7.7) Lymphocytes # (Auto) 1.9 x10^3/uL (1.0-4.8) Monocytes # (Auto) 0.4 x10^3/uL (0.0-1.1) Eosinophils # (Auto) 0.1 x10^3/uL (0.0-0.7) Basophils # (Auto) 0.0 x10^3/uL (0.0-0.2) Sodium Level 141 mmol/L (136-145) Potassium Level 4.2 mmol/L (3.5-5.1) Chloride Level 103 mmol/L (98-107) Carbon Dioxide Level 27 mmol/L (21-32) Anion Gap 11 (6-14) Blood Urea Nitrogen 16 mg/dL (8-26) Creatinine 0.9 mg/dL (0.7-1.3) Estimated GFR (Cockcroft-Gault) 82.3 BUN/Creatinine Ratio 18 (6-20) Glucose Level 89 mg/dL (70-99) Calcium Level 9.1 mg/dL (8.5-10.1) Magnesium Level 1.4 mg/dL (1.8-2.4) L Total Bilirubin 0.4 mg/dL (0.2-1.0) Aspartate Amino Transferase (AST) 9 U/L (15-37) L Alanine Aminotransferase (ALT) 10 U/L (16-63) L Alkaline Phosphatase 56 U/L (46-116) Total Protein 7.4 g/dL (6.4-8.2) Albumin 3.1 g/dL (3.4-5.0) L Albumin/Globulin Ratio 0.7 (1.0-1.7) L Current Medications: Meds: Current Medications Medications (Trade) Dose Ordered Sig/Angelique Route PRN Reason Start Time Stop Time Status Last Admin Dose Admin Cyanocobalamin (Vitamin B-12) 1,000 mcg QMONTH IM 06/11/19 09:00 06/11/19 09:08 I have reviewed the current psychotropics carefully including drug interactions. Risk benefit ratio favors no change other than as noted in my dictated progress note. Diagnosis: Problems: (1) History of schizophrenia (2) Vascular dementia with behavior disturbance (3) Anxiety disorder (4) Impulse disorder LEILA JAIMES MD Jun 11, 2019 20:33
[2019-06-12 05:24] VITALS: BP 117/77
[2019-06-12] MEDS: ESTROGENS, CONJUGATED 0.3 MG TABLET PO SCH (09:13)
[2019-06-12] MEDS: APIXABAN 2.5 MG TABLET PO SCH ×2 (09:13→20:13)
[2019-06-12] MEDS: metFORMIN 500 MG TABLET PO SCH ×2 (09:14→17:44)
[2019-06-12] MEDS: ISOSORBIDE MONONITRATE ER 30 MG TAB.ER.24H PO SCH (09:14)
[2019-06-12] MEDS: DONEPEZIL HCL 10 MG TABLET PO SCH (09:14)
[2019-06-12] MEDS: TAMSULOSIN 0.4 MG CAP.ER.24H. PO SCH (09:14)
[2019-06-12] MEDS: LOSARTAN 50 MG TABLET. PO SCH (09:15)
[2019-06-12 16:20] VITALS: BP 143/70
[2019-06-12] MEDS: traZODone 50 MG TABLET. PO SCH (17:44)
[2019-06-12] MEDS: DIVALPROEX ER 500 MG TAB.ER.24H PO SCH (20:13)
[2019-06-12] MEDS: QUEtiapine 50 MG TABLET. PO SCH (20:13)
[2019-06-12] MEDS: INSULIN GLARGINE SYRINGE. SQ SCH (20:17)
[2019-06-12] MEDS: LATANOPROST 0.005% OPHTH SOLUTION 2.5ML BOTTLE. OU SCH (20:18)
--- NOTE | 2019-06-12 20:33 | PDOC ---
Exam Note: Cy Note: Please also refer to the separate dictated note~for this date of service dictated separately.~Patient seen individually. Discussed the patient with Nursing staff reviewed the chart.~Reviewed interim history and current functioning. Reviewed vital signs,~Labs/ Radiology~and current medications noted below. Continue current treatment with the changes noted in the dictated addendum note Assessment: Vital Signs/I&O: Vital Signs Date Time Temp Pulse Resp B/P (MAP) Pulse Ox O2 Delivery O2 Flow Rate FiO2 06/12/19 16:20 98.0 65 18 143/70 (94) 100 06/11/19 05:52 Room Air I & O 06/11/19 06/11/19 06/12/19 15:00 23:00 07:00 Intake Total 480 ml 240 ml Balance 480 ml 240 ml Labs: Laboratory Tests Test 06/12/19 07:36 06/12/19 19:08 Glucose (Fingerstick) 98 mg/dL (70-99) 211 mg/dL (70-99) H Current Medications: I have reviewed the current psychotropics carefully including drug interactions. Risk benefit ratio favors no change other than as noted in my dictated progress note. Diagnosis: Problems: (1) History of schizophrenia (2) Vascular dementia with behavior disturbance (3) Anxiety disorder (4) Impulse disorder LEILA JAIMES MD Jun 12, 2019 20:33
--- NOTE | 2019-06-13 01:36 | PN ---
DATE: 06/09/2019 PSYCHIATRIC PROGRESS NOTE This late entry 06/09/2019 covers the elements not covered in my initial note. SUBJECTIVE: I met with the patient the evening of 06/09/2019. Per Yessy, the patient slept 6-1/4 hours the previous night. He has been compliant with his medications. Pleasant, no sexually inappropriate behaviors noted. REVIEW OF SYSTEMS: Ambulation is impaired, with walker. No CV, , pulmonary, eye system symptoms on review. MENTAL STATUS EXAM: Reasonably oriented. Speech is coherent. Abstraction is fair. Computation is impaired. Language function is intact. Attention span is short. Mood and affect are improved. LABORATORY DATA: Reviewed. IMPRESSION: Unchanged from initial note. PLAN: No change from initial note. MAN Marlene JAIMES MD DR: YANY/fatoumata JOB#: [id number] / [id number]
--- NOTE | 2019-06-13 01:38 | PN ---
DATE: 06/11/2019 PSYCHIATRIC PROGRESS NOTE. This late entry of 06/11/2019 covers the elements not covered in my initial note. SUBJECTIVE: I met with the patient the evening of 06/11/2019. The patient slept 7 hours the previous night. He has had some pain consequent to arthritis, received Ultram. REVIEW OF SYSTEMS: Ambulation is impaired, in wheelchair. No CV, , pulmonary, eye, ENT system symptoms on review. Reliability is fair. MENTAL STATUS EXAM: Oriented reasonably. Speech is coherent, has some latency. Abstraction is fair. Computation is impaired. Language function is intact. Mood and affect are improved. LABORATORY DATA: Reviewed. IMPRESSION: Unchanged from initial note. PLAN: No change from initial note. MAN Marlene JAIMES MD DR: YANY/fatoumata JOB#: [id number] / [id number]
[2019-06-13 05:07] VITALS: BP 138/84
[2019-06-13 05:09] VITALS: BP 154/74
[2019-06-13] MEDS: LOSARTAN 50 MG TABLET. PO SCH (09:02)
[2019-06-13] MEDS: TAMSULOSIN 0.4 MG CAP.ER.24H. PO SCH (09:03)
[2019-06-13] MEDS: ESTROGENS, CONJUGATED 0.3 MG TABLET PO SCH (09:03)
[2019-06-13] MEDS: metFORMIN 500 MG TABLET PO SCH ×2 (09:03→17:33)
[2019-06-13] MEDS: ISOSORBIDE MONONITRATE ER 30 MG TAB.ER.24H PO SCH (09:03)
[2019-06-13] MEDS: DONEPEZIL HCL 10 MG TABLET PO SCH (09:04)
[2019-06-13] MEDS: APIXABAN 2.5 MG TABLET PO SCH ×2 (09:04→20:26)
--- NOTE | 2019-06-13 11:14 | PN ---
DATE: 06/10/2019 PSYCHIATRIC PROGRESS NOTE This late entry, 06/10/2019, covers elements not covered in my initial note. SUBJECTIVE: I met with the patient in the evening. Overall, patient had a good day. No sexually inappropriate behaviors noted. Compliant with medications. He does not want his daughter to visit and there are some family dynamics. We will defer to social service staff. REVIEW OF SYSTEMS: Ambulation impaired, in wheelchair. No CV, , pulmonary, eye system symptoms on review. MENTAL STATUS EXAM: Reasonably oriented. Speech is coherent, has some latency. Abstraction fair, computation impaired, language function intact, attention span short. Mood and affect is improved, less labile. LABORATORY DATA: Reviewed. IMPRESSION: Unchanged from initial note. PLAN: No change from initial note. MAN Marlene JAIMES MD DR: YANY/fatoumata JOB#: [id number] / [id number]
[2019-06-13 16:12] VITALS: BP 124/72
[2019-06-13] MEDS: traZODone 50 MG TABLET. PO SCH (17:32)
[2019-06-13] MEDS: LATANOPROST 0.005% OPHTH SOLUTION 2.5ML BOTTLE. OU SCH (20:27)
[2019-06-13] MEDS: QUEtiapine 50 MG TABLET. PO SCH (20:27)
[2019-06-13] MEDS: DIVALPROEX ER 500 MG TAB.ER.24H PO SCH (20:27)
[2019-06-13] MEDS: INSULIN GLARGINE SYRINGE. SQ SCH (20:30)
--- NOTE | 2019-06-13 20:37 | PDOC ---
Exam Note: Cy Note: Please also refer to the separate dictated note~for this date of service dictated separately.~Patient seen individually. Discussed the patient with Nursing staff reviewed the chart.~Reviewed interim history and current functioning. Reviewed vital signs,~Labs/ Radiology~and current medications noted below. Continue current treatment with the changes noted in the dictated addendum note Assessment: Vital Signs/I&O: Vital Signs Date Time Temp Pulse Resp B/P (MAP) Pulse Ox O2 Delivery O2 Flow Rate FiO2 06/13/19 16:12 98.2 68 14 124/72 (89) 98 06/11/19 05:52 Room Air I & O 06/12/19 06/12/19 06/13/19 15:00 23:00 07:00 Intake Total 600 ml 460 ml Balance 600 ml 460 ml Labs: Laboratory Tests Test 06/13/19 07:33 Glucose (Fingerstick) 100 mg/dL (70-99) H Current Medications: I have reviewed the current psychotropics carefully including drug interactions. Risk benefit ratio favors no change other than as noted in my dictated progress note. Diagnosis: Problems: (1) History of schizophrenia (2) Vascular dementia with behavior disturbance (3) Anxiety disorder (4) Impulse disorder LEILA JAIMES MD Jun 13, 2019 20:37
[2019-06-14 05:19] VITALS: BP 143/85
[2019-06-14 09:48] VITALS: BP 139/70
[2019-06-14] MEDS: ISOSORBIDE MONONITRATE ER 30 MG TAB.ER.24H PO SCH (09:50)
[2019-06-14] MEDS: TAMSULOSIN 0.4 MG CAP.ER.24H. PO SCH (09:50)
[2019-06-14] MEDS: metFORMIN 500 MG TABLET PO SCH ×2 (09:50→17:20)
[2019-06-14] MEDS: APIXABAN 2.5 MG TABLET PO SCH ×2 (09:51→20:49)
[2019-06-14] MEDS: DONEPEZIL HCL 10 MG TABLET PO SCH (09:51)
[2019-06-14] MEDS: LOSARTAN 50 MG TABLET. PO SCH (09:51)
[2019-06-14] MEDS: ESTROGENS, CONJUGATED 0.3 MG TABLET PO SCH (09:54)
[2019-06-14 15:47] VITALS: BP 133/71
[2019-06-14] MEDS: traZODone 50 MG TABLET. PO SCH (17:19)
--- NOTE | 2019-06-14 20:41 | PDOC ---
Exam Note: Cy Note: Please also refer to the separate dictated note~for this date of service dictated separately.~Patient seen individually. Discussed the patient with Nursing staff reviewed the chart.~Reviewed interim history and current functioning. Reviewed vital signs,~Labs/ Radiology~and current medications noted below. Continue current treatment with the changes noted in the dictated addendum note Assessment: Vital Signs/I&O: Vital Signs Date Time Temp Pulse Resp B/P (MAP) Pulse Ox O2 Delivery O2 Flow Rate FiO2 06/14/19 15:47 99.1 62 16 133/71 (91) 98 06/11/19 05:52 Room Air I & O 06/13/19 06/13/19 06/14/19 15:00 23:00 07:00 Intake Total 720 ml 240 ml Balance 720 ml 240 ml Labs: Laboratory Tests Test 06/14/19 07:33 06/14/19 20:26 Glucose (Fingerstick) 96 mg/dL (70-99) 185 mg/dL (70-99) H Current Medications: I have reviewed the current psychotropics carefully including drug interactions. Risk benefit ratio favors no change other than as noted in my dictated progress note. Diagnosis: Problems: (1) History of schizophrenia (2) Vascular dementia with behavior disturbance (3) Anxiety disorder (4) Impulse disorder LEILA JAIMES MD Jun 14, 2019 20:41
[2019-06-14] MEDS: QUEtiapine 50 MG TABLET. PO SCH (20:49)
[2019-06-14] MEDS: DIVALPROEX ER 500 MG TAB.ER.24H PO SCH (20:49)
[2019-06-14] MEDS: LATANOPROST 0.005% OPHTH SOLUTION 2.5ML BOTTLE. OU SCH (20:49)
[2019-06-14] MEDS: INSULIN GLARGINE SYRINGE. SQ SCH (20:53)
[2019-06-15 05:57] VITALS: BP 147/81
[2019-06-15] MEDS: ESTROGENS, CONJUGATED 0.3 MG TABLET PO SCH (09:41)
[2019-06-15] MEDS: metFORMIN 500 MG TABLET PO SCH ×2 (09:42→17:10)
[2019-06-15] MEDS: ISOSORBIDE MONONITRATE ER 30 MG TAB.ER.24H PO SCH (09:42)
[2019-06-15] MEDS: APIXABAN 2.5 MG TABLET PO SCH ×2 (09:42→20:20)
[2019-06-15] MEDS: LOSARTAN 50 MG TABLET. PO SCH (09:42)
[2019-06-15] MEDS: TAMSULOSIN 0.4 MG CAP.ER.24H. PO SCH (09:42)
[2019-06-15] MEDS: DONEPEZIL HCL 10 MG TABLET PO SCH ×2 (09:42→20:21)
--- NOTE | 2019-06-15 12:44 | PN ---
DATE: 06/12/2019 PSYCHIATRIC PROGRESS NOTE This late entry of 06/12 covers elements not covered in my initial note. SUBJECTIVE: I met with the patient on the evening of 06/12. Per Yessy, the patient slept 7 hours previous night, has not been sexually inappropriate. I met with him in his room at length. REVIEW OF SYSTEMS: Ambulation impaired, in wheelchair. No CV, , pulmonary, eye system symptoms on review. MENTAL STATUS EXAMINATION: Oriented reasonably. Speech is coherent, abstraction fair, computation impaired, language function intact, attention span short. Mood and affect less labile. LABORATORY DATA: Reviewed. IMPRESSION: Unchanged from initial note. PLAN: No change from initial note. LEILA JAIMES MD DR: YANY/fatoumata JOB#: [id number] / [id number]
--- NOTE | 2019-06-15 13:26 | PN ---
DATE: 06/13/2019 PSYCHIATRIC PROGRESS NOTE This late entry 06/13/2019 covers elements not covered in my initial note. SUBJECTIVE: I met with the patient evening of 06/13/2019. The patient slept 7-3/4 hours previous night. Per nursing report, he has been doing better. No sexually inappropriate behaviors noted. REVIEW OF SYSTEMS: Ambulation impaired, in wheelchair. No CV, , PULMONARY, EYE system symptoms on review, met with him in his room. MENTAL STATUS EXAM: Reasonably oriented. Speech is coherent, less pressured. Abstraction fair, computation impaired, language function intact, attention span short. Mood and affect, lability is improved. LABORATORY DATA: Reviewed. IMPRESSION: Unchanged from initial note. PLAN: No change from initial note. No sexually inappropriate behaviors noted. MAN Marlene JAIMES MD DR: YANY/fatoumata JOB#: [id number] / [id number]
[2019-06-15 16:16] VITALS: BP 167/85
[2019-06-15] MEDS: traZODone 50 MG TABLET. PO SCH (17:10)
[2019-06-15] MEDS: DIVALPROEX ER 500 MG TAB.ER.24H PO SCH (20:20)
[2019-06-15] MEDS: MAGNESIUM OXIDE 400 MG TABLET PO SCH (20:20)
[2019-06-15] MEDS: LATANOPROST 0.005% OPHTH SOLUTION 2.5ML BOTTLE. OU SCH (20:20)
[2019-06-15] MEDS: QUEtiapine 50 MG TABLET. PO SCH (20:20)
[2019-06-15] MEDS: INSULIN GLARGINE SYRINGE. SQ SCH (20:22)
--- NOTE | 2019-06-15 20:50 | PDOC ---
Exam Note: Cy Note: Please also refer to the separate dictated note~for this date of service dictated separately.~Patient seen individually. Discussed the patient with Nursing staff reviewed the chart.~Reviewed interim history and current functioning. Reviewed vital signs,~Labs/ Radiology~and current medications noted below. Continue current treatment with the changes noted in the dictated addendum note Assessment: Vital Signs/I&O: Vital Signs Date Time Temp Pulse Resp B/P (MAP) Pulse Ox O2 Delivery O2 Flow Rate FiO2 06/15/19 16:16 97.1 85 18 167/85 (112) 99 06/11/19 05:52 Room Air I & O 06/14/19 06/14/19 06/15/19 15:00 23:00 07:00 Intake Total 720 ml 360 ml Balance 720 ml 360 ml Labs: Laboratory Tests Test 06/15/19 19:09 Glucose (Fingerstick) 192 mg/dL (70-99) H Current Medications: Meds: Current Medications Medications (Trade) Dose Ordered Sig/Angelique Route PRN Reason Start Time Stop Time Status Last Admin Dose Admin Magnesium Oxide (Magnesium Oxide) 400 mg TID PO 06/15/19 21:00 06/15/19 20:20 I have reviewed the current psychotropics carefully including drug interactions. Risk benefit ratio favors no change other than as noted in my dictated progress note. Diagnosis: Problems: (1) History of schizophrenia (2) Vascular dementia with behavior disturbance (3) Anxiety disorder (4) Impulse disorder LEILA JAIMES MD Jun 15, 2019 20:50
[2019-06-16 06:00] VITALS: BP 153/87
[2019-06-16] MEDS: TAMSULOSIN 0.4 MG CAP.ER.24H. PO SCH (08:09)
[2019-06-16] MEDS: APIXABAN 2.5 MG TABLET PO SCH ×2 (08:09→20:03)
[2019-06-16] MEDS: ISOSORBIDE MONONITRATE ER 30 MG TAB.ER.24H PO SCH (08:09)
[2019-06-16] MEDS: MAGNESIUM OXIDE 400 MG TABLET PO SCH ×3 (08:09→20:03)
[2019-06-16] MEDS: ESTROGENS, CONJUGATED 0.3 MG TABLET PO SCH (08:10)
[2019-06-16] MEDS: metFORMIN 500 MG TABLET PO SCH ×2 (08:10→17:00)
[2019-06-16] MEDS: DONEPEZIL HCL 10 MG TABLET PO SCH (08:10)
[2019-06-16] MEDS: LOSARTAN 50 MG TABLET. PO SCH (08:10)
[2019-06-16 16:00] VITALS: BP 118/62
[2019-06-16] MEDS: traZODone 50 MG TABLET. PO SCH (17:00)
[2019-06-16] MEDS: QUEtiapine 50 MG TABLET. PO SCH (20:03)
[2019-06-16] MEDS: LATANOPROST 0.005% OPHTH SOLUTION 2.5ML BOTTLE. OU SCH (20:04)
[2019-06-16] MEDS: DIVALPROEX ER 500 MG TAB.ER.24H PO SCH (20:04)
[2019-06-16] MEDS: INSULIN GLARGINE SYRINGE. SQ SCH (20:19)
--- NOTE | 2019-06-16 20:24 | PDOC ---
Exam Note: Cy Note: Please also refer to the separate dictated note~for this date of service dictated separately.~Patient seen individually. Discussed the patient with Nursing staff reviewed the chart.~Reviewed interim history and current functioning. Reviewed vital signs,~Labs/ Radiology~and current medications noted below. Continue current treatment with the changes noted in the dictated addendum note Assessment: Vital Signs/I&O: Vital Signs Date Time Temp Pulse Resp B/P (MAP) Pulse Ox O2 Delivery O2 Flow Rate FiO2 06/16/19 16:00 97.9 61 16 118/62 (80) 98 06/11/19 05:52 Room Air I & O 06/15/19 06/15/19 06/16/19 15:00 23:00 07:00 Intake Total 840 ml 240 ml 420 ml Balance 840 ml 240 ml 420 ml Labs: Laboratory Tests Test 06/16/19 19:06 Glucose (Fingerstick) 239 mg/dL (70-99) H Current Medications: Meds: Current Medications Medications (Trade) Dose Ordered Sig/Angelique Route PRN Reason Start Time Stop Time Status Last Admin Dose Admin Magnesium Oxide (Magnesium Oxide) 400 mg TID PO 06/15/19 21:00 06/16/19 20:03 I have reviewed the current psychotropics carefully including drug interactions. Risk benefit ratio favors no change other than as noted in my dictated progress note. Diagnosis: Problems: (1) History of schizophrenia (2) Vascular dementia with behavior disturbance (3) Anxiety disorder (4) Impulse disorder LEILA JAIMES MD Jun 16, 2019 20:24
--- NOTE | 2019-06-17 03:58 | PN ---
DATE: 06/14/2019 PSYCHIATRIC PROGRESS NOTE This late entry 06/14/2019 covers elements not covered in my initial note. SUBJECTIVE: I met with the patient the evening of 06/14/2019. Overall, per NELL Frank, the patient slept 7-1/2 hours the previous night. CT head is noncontributory. He is somewhat withdrawn. No sexually inappropriate behaviors noted. REVIEW OF SYSTEMS: Ambulation impaired, with walker. No CV, , pulmonary, eye, ENT system symptoms on review. Reliability is fair. MENTAL STATUS EXAM: Reasonably oriented. Speech is coherent, has some latency. Abstraction is fair. Computation impaired. Language function intact. Attention span short. Mood and affect are showing improvement, less labile and impulsive. LABORATORY DATA: Reviewed. IMPRESSION: Unchanged from initial note. PLAN: No change from initial note. MAN Marlene JAIMES MD DR: YANY/fatoumata JOB#: [id number] / [id number]
--- NOTE | 2019-06-17 03:59 | PN ---
DATE: 06/15/2019 PSYCHIATRIC PROGRESS NOTE This late entry 06/15/2019 covers elements not covered in my initial note. SUBJECTIVE: I met with the patient in the evening of 06/15/2019. The patient was also staffed at treatment team meeting in the morning. Reviewed the patient's progress. Sleeping 7-8 hours. Appetite is fair. REVIEW OF SYSTEMS: Ambulation impaired with walker. No CV, , pulmonary, eye system symptoms on review. MENTAL STATUS EXAM: The patient is reasonably oriented. Speech has some latency, often responses monosyllabic. Abstraction fair, computation impaired, language function intact. Mood and affect is overall improved, slightly withdrawn, no sexually inappropriate behavior is noted. LABORATORY DATA: Reviewed. IMPRESSION: Unchanged from initial note. PLAN: No change from initial note. MAN Marlene JAIMES MD DR: YANY/fatoumata JOB#: [id number] / [id number]
[2019-06-17 05:32] VITALS: BP 147/83
[2019-06-17] MEDS: metFORMIN 500 MG TABLET PO SCH ×2 (08:39→17:00)
[2019-06-17] MEDS: APIXABAN 2.5 MG TABLET PO SCH ×2 (08:39→20:53)
[2019-06-17] MEDS: MAGNESIUM OXIDE 400 MG TABLET PO SCH ×3 (08:39→20:53)
[2019-06-17] MEDS: ISOSORBIDE MONONITRATE ER 30 MG TAB.ER.24H PO SCH (08:39)
[2019-06-17] MEDS: TAMSULOSIN 0.4 MG CAP.ER.24H. PO SCH (08:40)
[2019-06-17] MEDS: DONEPEZIL HCL 10 MG TABLET PO SCH (08:40)
[2019-06-17] MEDS: ESTROGENS, CONJUGATED 0.3 MG TABLET PO SCH (08:40)
[2019-06-17] MEDS: LOSARTAN 50 MG TABLET. PO SCH (08:40)
[2019-06-17] MEDS: CHOLECALCIFEROL (VITAMIN D3) 50,000 UNIT CAPSULE PO SCH (08:43)
[2019-06-17 15:46] VITALS: BP 102/64
[2019-06-17] MEDS: traZODone 50 MG TABLET. PO SCH (17:00)
[2019-06-17] MEDS: LATANOPROST 0.005% OPHTH SOLUTION 2.5ML BOTTLE. OU SCH (20:53)
[2019-06-17] MEDS: DIVALPROEX ER 500 MG TAB.ER.24H PO SCH (20:53)
[2019-06-17] MEDS: QUEtiapine 50 MG TABLET. PO SCH (20:53)
[2019-06-17] MEDS: INSULIN GLARGINE SYRINGE. SQ SCH (20:57)
[2019-06-18 05:56] VITALS: BP 157/87
[2019-06-18 07:23] LABS: BASO % 1 % (0-3); EOS % 1 % (0-3); HEMATOCRIT 35.5 % (39.0-53.0); HEMOGLOBIN 11.9 g/dL (13.0-17.5); LYMPH # 2.5 x10^3/uL (1.0-4.8); LYMPH % 42 % (24-48); MEAN CORPUSCULAR HEMOGLOBIN 31 pg (25-35); MEAN CORPUSCULAR HGB CONC 34 g/dL (31-37); MEAN CORPUSCULAR VOLUME 92 fL (79-100); MONO # 0.6 x10^3/uL (0.0-1.1); MONO % 9 % (0-9); NEUT # 2.9 x10^3uL (1.8-7.7); NEUT % 48 % (31-73); PLATELET COUNT 178 x10^3/uL (140-400); RED BLOOD COUNT 3.86 x10^6/uL (4.30-5.70); RED CELL DISTRIBUTION WIDTH 14.3 % (11.5-14.5); WHITE BLOOD COUNT 6.1 x10^3/uL (4.0-11.0)
[2019-06-18 07:42] LABS: ALBUMIN 2.4 g/dL (3.4-5.0); ALBUMIN/GLOBULIN RATIO 0.7 (1.0-1.7); CALCIUM 8.3 mg/dL (8.5-10.1); CREATININE 0.9 mg/dL (0.7-1.3); GFR 82.3; POTASSIUM 4.3 mmol/L (3.5-5.1); TOTAL BILIRUBIN 0.2 mg/dL (0.2-1.0)
[2019-06-18] MEDS: ESTROGENS, CONJUGATED 0.3 MG TABLET PO SCH (08:34)
[2019-06-18] MEDS: metFORMIN 500 MG TABLET PO SCH ×2 (08:34→17:00)
[2019-06-18] MEDS: MAGNESIUM OXIDE 400 MG TABLET PO SCH ×3 (08:35→21:00)
[2019-06-18] MEDS: LOSARTAN 50 MG TABLET. PO SCH (08:35)
[2019-06-18] MEDS: DONEPEZIL HCL 10 MG TABLET PO SCH (08:35)
[2019-06-18] MEDS: TAMSULOSIN 0.4 MG CAP.ER.24H. PO SCH (08:35)
[2019-06-18] MEDS: ISOSORBIDE MONONITRATE ER 30 MG TAB.ER.24H PO SCH (08:36)
[2019-06-18] MEDS: APIXABAN 2.5 MG TABLET PO SCH ×2 (08:36→21:00)
[2019-06-18 16:10] VITALS: BP 100/60
[2019-06-18] MEDS: traZODone 50 MG TABLET. PO SCH (17:00)
[2019-06-18] MEDS: QUEtiapine 50 MG TABLET. PO SCH (21:00)
[2019-06-18] MEDS: DIVALPROEX ER 500 MG TAB.ER.24H PO SCH (21:00)
[2019-06-18] MEDS: LATANOPROST 0.005% OPHTH SOLUTION 2.5ML BOTTLE. OU SCH (21:00)
[2019-06-18] MEDS: INSULIN GLARGINE SYRINGE. SQ SCH (21:03)
--- NOTE | 2019-06-18 21:49 | PDOC ---
Exam Note: Cy Note: This is a late entry for DOS 06/17/2019. Please also refer to the separate dictated note~for this date of service dictated separately.~Patient seen individually. Discussed the patient with Nursing staff reviewed the chart.~Reviewed interim history and current functioning. Reviewed vital signs,~Labs/ Radiology~and current medications noted below. Continue current treatment with the changes noted in the dictated addendum note Assessment: Vital Signs/I&O: Vital Signs Date Time Temp Pulse Resp B/P (MAP) Pulse Ox O2 Delivery O2 Flow Rate FiO2 06/18/19 16:10 97.2 85 20 100/60 (73) 99 06/17/19 05:32 Room Air I & O 06/17/19 06/17/19 06/18/19 15:00 23:00 07:00 Intake Total 480 ml 240 ml 240 ml Balance 480 ml 240 ml 240 ml Labs: Laboratory Tests Test 06/18/19 06:48 06/18/19 07:24 06/18/19 20:07 White Blood Count 6.1 x10^3/uL (4.0-11.0) Red Blood Count 3.86 x10^6/uL (4.30-5.70) L Hemoglobin 11.9 g/dL (13.0-17.5) L Hematocrit 35.5 % (39.0-53.0) L Mean Corpuscular Volume 92 fL (79-100) Mean Corpuscular Hemoglobin 31 pg (25-35) Mean Corpuscular Hemoglobin Concent 34 g/dL (31-37) Red Cell Distribution Width 14.3 % (11.5-14.5) Platelet Count 178 x10^3/uL (140-400) Neutrophils (%) (Auto) 48 % (31-73) Lymphocytes (%) (Auto) 42 % (24-48) Monocytes (%) (Auto) 9 % (0-9) Eosinophils (%) (Auto) 1 % (0-3) Basophils (%) (Auto) 1 % (0-3) Neutrophils # (Auto) 2.9 x10^3uL (1.8-7.7) Lymphocytes # (Auto) 2.5 x10^3/uL (1.0-4.8) Monocytes # (Auto) 0.6 x10^3/uL (0.0-1.1) Eosinophils # (Auto) 0.0 x10^3/uL (0.0-0.7) Basophils # (Auto) 0.0 x10^3/uL (0.0-0.2) Sodium Level 138 mmol/L (136-145) Potassium Level 4.3 mmol/L (3.5-5.1) Chloride Level 105 mmol/L (98-107) Carbon Dioxide Level 25 mmol/L (21-32) Anion Gap 8 (6-14) Blood Urea Nitrogen 22 mg/dL (8-26) Creatinine 0.9 mg/dL (0.7-1.3) Estimated GFR (Cockcroft-Gault) 82.3 BUN/Creatinine Ratio 24 (6-20) H Glucose Level 112 mg/dL (70-99) H Calcium Level 8.3 mg/dL (8.5-10.1) L Total Bilirubin 0.2 mg/dL (0.2-1.0) Aspartate Amino Transferase (AST) 6 U/L (15-37) L Alanine Aminotransferase (ALT) 7 U/L (16-63) L Alkaline Phosphatase 48 U/L (46-116) Total Protein 6.0 g/dL (6.4-8.2) L Albumin 2.4 g/dL (3.4-5.0) L Albumin/Globulin Ratio 0.7 (1.0-1.7) L Glucose (Fingerstick) 120 mg/dL (70-99) H 190 mg/dL (70-99) H Current Medications: I have reviewed the current psychotropics carefully including drug interactions. Risk benefit ratio favors no change other than as noted in my dictated progress note. Diagnosis: Problems: (1) History of schizophrenia (2) Vascular dementia with behavior disturbance (3) Anxiety disorder (4) Impulse disorder LEILA JAIMES MD Jun 18, 2019 21:49
[2019-06-19] MEDS ORDERED: ACET325T21 PO (01:12)
[2019-06-19] MEDS ORDERED: CHOL500050 PO (01:13)
[2019-06-19] MEDS ORDERED: DIVA500T4 PO (01:14)
[2019-06-19] MEDS ORDERED: ESTR0.9T PO (01:14)
[2019-06-19] MEDS ORDERED: MAGN2400 PO (01:16)
[2019-06-19] MEDS ORDERED: MAG-95 PO (01:16)
[2019-06-19] MEDS ORDERED: MAGN400T5 PO (01:17)
[2019-06-19] MEDS ORDERED: METH28OI2 TP (01:18)
[2019-06-19] MEDS ORDERED: FLUV50TA2 PO (01:19)
[2019-06-19 05:53] VITALS: BP 156/83
[2019-06-19] MEDS: DONEPEZIL HCL 10 MG TABLET PO SCH (09:17)
[2019-06-19] MEDS: metFORMIN 500 MG TABLET PO SCH (09:17)
[2019-06-19 09:18] VITALS: BP 156/83
[2019-06-19] MEDS: LOSARTAN 50 MG TABLET. PO SCH (09:18)
[2019-06-19] MEDS: APIXABAN 2.5 MG TABLET PO SCH (09:18)
[2019-06-19] MEDS: ISOSORBIDE MONONITRATE ER 30 MG TAB.ER.24H PO SCH (09:18)
[2019-06-19] MEDS: ESTROGENS, CONJUGATED 0.3 MG TABLET PO SCH (09:18)
[2019-06-19] MEDS: MAGNESIUM OXIDE 400 MG TABLET PO SCH (09:18)
[2019-06-19] MEDS: TAMSULOSIN 0.4 MG CAP.ER.24H. PO SCH (09:18)
--- NOTE | 2019-06-19 11:18 | PN ---
DATE: 06/16/2019 PSYCHIATRIC PROGRESS NOTE DATE OF SERVICE: 06/16/2019 This late entry, 06/16/2019, covers elements not covered in my initial note. SUBJECTIVE: I met with the patient evening of 06/16/2019. Per NELL Quesada, the patient slept 7-1/2 hours previous night. He has not had any sexually inappropriate behaviors, a little withdrawn at times, but appropriate. I met with him at length in his room. REVIEW OF SYSTEMS: Ambulation impaired, in wheelchair. No CV, , pulmonary, eye, ENT system symptoms on review. Reliability fair. MENTAL STATUS EXAM: Reasonably oriented. Speech is coherent, abstraction fair, computation impaired, language function intact. Mood and affect is improved. LABORATORY DATA: Reviewed. IMPRESSION: Unchanged from initial note. PLAN: No change from initial note. MAN Marlene JAIMES MD DR: YANY/fatoumata JOB#: [id number] / [id number]
--- NOTE | 2019-06-19 20:18 | PDOC ---
Exam Note: Cy Note: Please also refer to the separate dictated note~for this date of service dictated separately.~Patient seen individually. Discussed the patient with Nursing staff reviewed the chart.~Reviewed interim history and current functioning. Reviewed vital signs,~Labs/ Radiology~and current medications noted below. Continue current treatment with the changes noted in the dictated addendum note Assessment: Vital Signs/I&O: Vital Signs Date Time Temp Pulse Resp B/P (MAP) Pulse Ox O2 Delivery O2 Flow Rate FiO2 06/19/19 09:18 70 156/83 06/19/19 05:53 97.7 20 99 06/17/19 05:32 Room Air I & O 06/18/19 06/18/19 06/19/19 14:59 22:59 06:59 Intake Total 960 ml 580 ml Balance 960 ml 580 ml Current Medications: I have reviewed the current psychotropics carefully including drug interactions. Risk benefit ratio favors no change other than as noted in my dictated progress note. Diagnosis: Problems: (1) History of schizophrenia (2) Vascular dementia with behavior disturbance (3) Anxiety disorder (4) Impulse disorder (5) CKD (chronic kidney disease) stage 3, GFR 30-59 ml/min LEILA JAIMES MD Jun 19, 2019 20:18
--- NOTE | 2019-06-20 00:37 | PN ---
DATE: 06/17/2019 PSYCHIATRIC PROGRESS NOTE This late entry, 06/17/2019, covers elements not covered in my initial note. SUBJECTIVE: I met with the patient in the evening of 06/17/2019. The patient slept 8-1/4 hours previous night. He remains somewhat withdrawn, takes medications whole. He has not been sexually inappropriate. REVIEW OF SYSTEMS: No CV, , pulmonary, eye system symptoms on review. MENTAL STATUS EXAM: Reasonably oriented. Speech is coherent, has some latency. Abstraction fair, computation impaired, language function intact, attention span short. Mood and affect somewhat withdrawn. LABORATORY DATA: Reviewed. IMPRESSION: Unchanged from initial note. PLAN: No change from initial note. LEILA JAIMES MD DR: YANY/fatoumata JOB#: [id number] / [id number]
--- NOTE | 2019-06-20 00:39 | PN ---
DATE: 06/18/2019 PSYCHIATRIC PROGRESS NOTE This late entry, 06/18/2019, covers elements not covered in my initial note. SUBJECTIVE: I met with the patient in the evening of 06/18/2019. The patient slept 6-1/2 hours previous night. He has had no sexually inappropriate behaviors. REVIEW OF SYSTEMS: Ambulation impaired, in wheelchair. No CV, , pulmonary, eye system symptoms on review. MENTAL STATUS EXAM: Reasonably oriented. Speech has some latency, often responses monosyllabic. Abstraction fair, computation impaired, language function intact, attention span short. Mood and affect somewhat withdrawn. LABORATORY DATA: Reviewed. IMPRESSION: Unchanged from initial note. PLAN: No change from initial note. MAN Marlene JAIMES MD DR: YANY/fatoumata JOB#: [id number] / [id number]
--- NOTE | 2019-06-20 19:33 | DS ---
DATE OF DISCHARGE: 06/19/2019 This late entry 06/19/2019 covers elements not covered in my initial note. REASON FOR ADMISSION: Please refer to the admission history for details. Briefly, the patient is a 74-year-old male, referred to us from [facility]. Dictation Ends Here. MAN Marlene JAIMES MD DR: YANY/fatoumata JOB#: [id number] / [id number]
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
[2019-06-23] MEDS ORDERED: MEDROXYPROGESTERONE ACETATE IM SCH (09:00)
[2019-07-23] MEDS ORDERED: MEDROXYPROGESTERONE ACETATE SUBCUT SCH (09:00)
== END 2019-06-19 10:28 | DRG 885 ==
LOC: ER 15:55 → GEROPSY 18:50
PROVIDERS: ADMIT Psychiatry & Neurology Psychiatry; ATTEND Psychiatry & Neurology Psychiatry
DX: F25.0 Schizoaffective disorder, bipolar type (principal); F01.51 Vascular dementia, unspecified severity, with behavioral disturbance; I69.354 Hemiplegia and hemiparesis following cerebral infarction affecting left non-dominant side; E83.42 Hypomagnesemia; N18.9 Chronic kidney disease, unspecified; E11.22 Type 2 diabetes mellitus with diabetic chronic kidney disease; F41.1 Generalized anxiety disorder; F63.9 Impulse disorder, unspecified; I12.9 Hypertensive chronic kidney disease with stage 1 through stage 4 chronic kidney disease, or unspecified chronic kidney disease; N18.3 Chronic kidney disease, stage 3 (moderate); M19.90 Unspecified osteoarthritis, unspecified site; I25.10 Atherosclerotic heart disease of native coronary artery without angina pectoris; E78.00 Pure hypercholesterolemia, unspecified; Z79.01 Long term (current) use of anticoagulants; E78.5 Hyperlipidemia, unspecified; H90.5 Unspecified sensorineural hearing loss; N40.0 Benign prostatic hyperplasia without lower urinary tract symptoms; F42.9 Obsessive-compulsive disorder, unspecified; Z79.4 Long term (current) use of insulin; Z79.899 Other long term (current) drug therapy; Z82.3 Family history of stroke
CPT/HCPCS: 36415; 70450; 80053; 80061; 80164; 80307; 81001; 82140; 82306; 82947; 83036; 83540; 83550; 83735; 84436; 84443; 84480; 85025; 86592; 93005; J1050; J1815; J3420; 99285-25